=== PATIENT | female | born 1970 | race African-American/Black ===

== ENCOUNTER 2016-12-27 12:06 | Emergency (ER) | payer MEDICAID ==
[~2016-12-27] VITALS: Ht 152.4 cm; Wt 117.1 kg
[~2016-12-27 12:06] MED LIST: ALBU6.7H INH; AMLO10TA2 PO; ARIP5TAB6 PO; AZIT500T4 PO; BUPR150T73 PO; BUSP30TA PO; CEFD300C2 PO; CLON0.12 PO; DIAZ10TA PO; DULO30CA2 PO; FERR325T20 PO; FLUO40CA9 PO; LISI2.5T PO; LORA-446 PO; MOME13HF2 INH; NICO1PAT4 TD; OXCA300T3 PO; PRED-402 PO; PRED20TA PO; RISP0.2518 PO; SERT50TA; TRAZ50TA18 PO
[2016-12-27 13:50] VITALS: BP 155/70
== END 2016-12-27 14:10 | disposition home or self-care (01) ==
LOC: ED 14:05
DX: J45.31 Mild persistent asthma with (acute) exacerbation (principal); Z87.01 Personal history of pneumonia (recurrent)
CPT/HCPCS: 71020; 93005; 99284; J7512

== ENCOUNTER 2017-04-11 07:07 | Emergency (ER) | payer MEDICAID ==
[~2017-04-11] VITALS: Ht 152.4 cm; Wt 118.5 kg
[~2017-04-11 07:07] MED LIST changes: -AZIT500T4 PO; +AZIT500T77 PO; -CEFD300C2 PO; +CEFD300C37 PO
[2017-04-11 07:09] VITALS: BP 170/96
== END 2017-04-11 08:06 | disposition home or self-care (01) ==
LOC: ED 07:45
DX: K02.9 Dental caries, unspecified (principal); J45.909 Unspecified asthma, uncomplicated; I10 Essential (primary) hypertension
CPT/HCPCS: 99283

== ENCOUNTER 2017-04-28 09:56 | Emergency (ER) | payer MEDICAID ==
[~2017-04-28] VITALS: Ht 152.4 cm; Wt 118.0 kg
[2017-04-28 10:03] VITALS: BP 172/100
== END 2017-04-28 12:45 | disposition left against medical advice (07) ==
LOC: ED 12:05
DX: M54.5 Low back pain (principal); Z53.21 Procedure and treatment not carried out due to patient leaving prior to being seen by health care provider

== ENCOUNTER 2017-05-05 09:17 | Emergency (ER) | payer MEDICAID ==
[~2017-05-05] VITALS: Ht 152.4 cm; Wt 117.0 kg
[2017-05-05 09:20] VITALS: BP 191/74
[2017-05-05] MEDS ORDERED: HYDROcodone/APAP 10/325 MG TABLET PO STA (09:37)
[2017-05-05] MEDS ORDERED: DIAZEPAM 5 MG TABLET PO ONE (10:00)
[2017-05-05] MEDS ORDERED: DIAZEPAM 5 MG TABLET ONE (10:16)
[2017-05-05] MEDS ORDERED: HYDROcodone/APAP 10/325 MG TABLET ONE (10:17)
== END 2017-05-05 10:59 | disposition home or self-care (01) ==
LOC: ED 09:49
DX: S29.012A Strain of muscle and tendon of back wall of thorax, initial encounter (principal); I10 Essential (primary) hypertension; J45.909 Unspecified asthma, uncomplicated; X50.0XXA Overexertion from strenuous movement or load, initial encounter; Y93.89 Activity, other specified; Y92.89 Other specified places as the place of occurrence of the external cause; Y99.8 Other external cause status
CPT/HCPCS: 99283

== ENCOUNTER 2017-05-12 11:13 | Emergency (ER) | payer MEDICAID ==
[~2017-05-12] VITALS: Ht 152.4 cm; Wt 117.0 kg
[2017-05-12 11:14] VITALS: BP 140/78
== END 2017-05-12 12:48 | disposition home or self-care (01) ==
LOC: ED 12:36
DX: S29.012A Strain of muscle and tendon of back wall of thorax, initial encounter (principal); M51.34 Other intervertebral disc degeneration, thoracic region; I10 Essential (primary) hypertension; J45.909 Unspecified asthma, uncomplicated; F43.10 Post-traumatic stress disorder, unspecified; G43.909 Migraine, unspecified, not intractable, without status migrainosus; X58.XXXA Exposure to other specified factors, initial encounter; Y93.89 Activity, other specified; Y92.89 Other specified places as the place of occurrence of the external cause; Y99.8 Other external cause status
CPT/HCPCS: 72072; 99284

== ENCOUNTER 2017-06-13 15:16 | Emergency (ER) | payer MEDICAID ==
[~2017-06-13] VITALS: Ht 152.4 cm; Wt 116.7 kg
[~2017-06-13 15:16] MED LIST changes: +ARIP5TAB13 PO; -ARIP5TAB6 PO; +AZIT500T5 PO; -AZIT500T77 PO; +FERR325T18 PO; -FERR325T20 PO; +NICO1PAT13 TD; -NICO1PAT4 TD
[2017-06-13 15:24] VITALS: BP 168/99
[2017-06-13] MEDS ORDERED: FAMOTIDINE 20 MG/2 ML IVP ONE (16:30)
[2017-06-13] MEDS ORDERED: FAMOTIDINE 20 MG/2 ML ONE (16:30)
[2017-06-13] MEDS ORDERED: SODIUM CHLORIDE 0.9% 1,000ML IVBOLUS ONE (16:30)
[2017-06-13] MEDS ORDERED: SODIUM CHLORIDE FLUSH 10ML SYR IVF ONE (16:30)
[2017-06-13] MEDS ORDERED: ONDANSETRON 2MG/ML, 2ML IVPush ONE (16:30)
[2017-06-13] MEDS ORDERED: ONDANSETRON 2MG/ML, 2ML ONE (16:30)
[2017-06-13 16:56] LABS: ASPARTATE AMINO TRANSFERASE 28 U/L (15-37); BLOOD UREA NITROGEN 10 mg/dL (7-18)
[2017-06-13 16:57] LABS: HEMATOCRIT 38.9 % (34.6-47.8); HEMOGLOBIN 12.2 g/dL (11.7-16.4); WHITE BLOOD COUNT 7.8 x10^3/uL (3.4-10)
[2017-06-13 16:58] LABS: ANISOCYTOSIS 2+; HYPOCHROMIA 1+; MICROCYTOSIS 1+; POLYCHROMASIA 1+
[2017-06-13 16:59] LABS: SCHISTOCYTES 1+
[2017-06-13 17:00] LABS: LARGE PLATELETS 1+
== END 2017-06-13 18:46 | disposition home or self-care (01) ==
LOC: ED 15:37
DX: D25.9 Leiomyoma of uterus, unspecified (principal); F43.10 Post-traumatic stress disorder, unspecified; F32.9 Major depressive disorder, single episode, unspecified; I10 Essential (primary) hypertension; J45.909 Unspecified asthma, uncomplicated
CPT/HCPCS: 36415; 76856; 80053; 81003; 83690; 84703; 85025; 96361; 96374; 96375; 99285; J2405; J7030; S0028

== ENCOUNTER 2017-06-15 15:19 | Emergency (ER) | payer MEDICAID ==
[~2017-06-15] VITALS: Ht 152.4 cm; Wt 116.4 kg
[2017-06-15 16:00] LABS: PATH.CAST-FLAG NOT PRESENT; SPERM-FLAG NOT PRESENT; SRC-FLAG NOT PRESENT; XTAL-FLAG NOT PRESENT; YLC-FLAG NOT PRESENT
[2017-06-15] MEDS ORDERED: SODIUM CHLORIDE 0.9% 1,000 ML IV ONE (16:08)
[2017-06-15] MEDS ORDERED: SODIUM CHLORIDE FLUSH 10ML SYR IVF ONE (16:30)
[2017-06-15] MEDS ORDERED: HYDROmorphone 1 MG/ML, 1ML IVPush PRN (16:30)
[2017-06-15] MEDS ORDERED: ONDANSETRON 2MG/ML, 2ML IVPush ONE (16:30)
[2017-06-15 16:52] LABS: BLOOD UREA NITROGEN 12 mg/dL (7-18)
[2017-06-15 16:53] LABS: HEMATOCRIT 40.3 % (34.6-47.8); HEMOGLOBIN 12.5 g/dL (11.7-16.4); WHITE BLOOD COUNT 8.7 x10^3/uL (3.4-10)
[2017-06-15] MEDS ORDERED: HYDROmorphone 1 MG/ML, 1ML ONE (16:53)
[2017-06-15] MEDS ORDERED: ONDANSETRON 2MG/ML, 2ML ONE (16:53)
[2017-06-15 16:57] LABS: ASPARTATE AMINO TRANSFERASE 28 U/L (15-37)
[2017-06-15 19:27] VITALS: BP 158/91
[2017-06-15] MEDS ORDERED: OMNIPAQUE 350 MG/ML, 100ML BOTTLE ONE (20:44)
== END 2017-06-15 19:42 | disposition home or self-care (01) ==
LOC: ED 16:08
DX: M46.1 Sacroiliitis, not elsewhere classified (principal); R10.31 Right lower quadrant pain; I10 Essential (primary) hypertension; J45.909 Unspecified asthma, uncomplicated
CPT/HCPCS: 36415; 74177; 80053; 81001; 83690; 84703; 85025; 87086; 93005; 96361; 96374; 96375; 99285; J1170; J2405; J7030; Q9967

== ENCOUNTER 2017-07-10 19:42 | Inpatient (IN) | payer MEDICAID ==
[~2017-07-10] VITALS: Ht 152.4 cm; Wt 115.9 kg
[~2017-07-10 19:42] MED LIST changes: +NICO-486 TD; -NICO1PAT13 TD
[2017-07-10] MEDS ORDERED: ALBUTEROL SULFATE 2.5 MG/3 ML NPPB ONE (20:30)
[2017-07-10] MEDS ORDERED: ALBUTEROL/IPRATROPIUM 2.5MG/0.5MG, 3 ML ONE (20:33)
[2017-07-10 20:35] LABS: BLOOD UREA NITROGEN 14 mg/dL (7-18)
[2017-07-10 20:36] LABS: ASPARTATE AMINO TRANSFERASE 42 U/L (15-37)
[2017-07-10 20:55] LABS: IS PT STATUS REG ER OR PRE ER? YES
[2017-07-10 21:07] LABS: HEMATOCRIT 39.9 % (34.6-47.8); HEMOGLOBIN 12.8 g/dL (11.7-16.4); WHITE BLOOD COUNT 8.5 x10^3/uL (3.4-10)
[2017-07-10] MEDS ORDERED: BUPR150T73 PO (21:50)
[2017-07-10] MEDS ORDERED: LURA60TA PO (21:50)
[2017-07-10] MEDS ORDERED: ONDANSETRON 2MG/ML, 2ML IVPush PRN (22:00)
[2017-07-10] MEDS ORDERED: ENOXAPARIN 40 MG/0.4 ML SQ SCH (22:00)
[2017-07-10] MEDS ORDERED: hydrALAzine 20 MG/ML, 1ML IVPush PRN (22:00)
[2017-07-10] MEDS ORDERED: ALBUTEROL SULFATE INH PRN (22:00)
[2017-07-10] MEDS ORDERED: LORazepam 1MG TABLET PO PRN (22:00)
[2017-07-10] MEDS ORDERED: ACETAMINOPHEN 325 MG TABLET PO PRN (22:00)
[2017-07-10] MEDS ORDERED: HYDROmorphone 2 MG/ML, 1ML IVPush PRN (22:00)
[2017-07-10 23:24] VITALS: BP 156/72
[2017-07-10] MEDS: methylPREDNISolone SOD SUCC 125 MG/2 ML IVPush SCH (23:54)
[2017-07-11] MEDS: DOXYCYCLINE 100 MG in DEXTROSE 5% 250 ML IVPB SCH ×2 (01:18→10:22)
[2017-07-11 01:45] VITALS: BP 140/70
[2017-07-11] MEDS: methylPREDNISolone SOD SUCC 125 MG/2 ML IVPush SCH (06:15)
[2017-07-11] MEDS ORDERED: PANTOPRAZOLE 40 MG IV IVPush SCH (07:30)
[2017-07-11 08:00] VITALS: BP_SYST 123; BP_SYST 140; BP_DIAS 70; BP_DIAS 78
[2017-07-11] MEDS ORDERED: LURASIDONE 20 MG TABLET PO SCH (09:00)
[2017-07-11] MEDS ORDERED: AMLODIPINE 5 MG TABLET PO SCH (09:00)
[2017-07-11] MEDS ORDERED: SODIUM CHLORIDE FLUSH 10ML SYR IVF SCH (09:00)
[2017-07-11] MEDS ORDERED: BUPROPION SR 150 MG TABLET PO SCH (09:00)
[2017-07-11 11:48] VITALS: BP 123/78
[2017-07-11] MEDS ORDERED: FAMO-79 PO (11:50)
[2017-07-11] MEDS ORDERED: METH4TAB2 PO (11:50)
== END 2017-07-11 12:45 | disposition home health service (06) | DRG 203 ==
LOC: ED 21:10 → EDIP 21:55 → 4WST 07-11 00:28
PROVIDERS: ADMIT Internal Medicine; ATTEND Internal Medicine
DX: J45.901 Unspecified asthma with (acute) exacerbation (principal); Z99.81 Dependence on supplemental oxygen; I10 Essential (primary) hypertension; R09.02 Hypoxemia; G47.33 Obstructive sleep apnea (adult) (pediatric); F41.1 Generalized anxiety disorder; F17.200 Nicotine dependence, unspecified, uncomplicated; F43.10 Post-traumatic stress disorder, unspecified; G43.909 Migraine, unspecified, not intractable, without status migrainosus; F32.9 Major depressive disorder, single episode, unspecified; D25.9 Leiomyoma of uterus, unspecified
CPT/HCPCS: 36415; 71010; 80053; 83880; 84484; 85025; 85379; 93005; 93306; 94640; 99285; J1650; J7060; J7613; C9113; J2930; J7512

== ENCOUNTER 2017-11-19 10:08 | Emergency (ER) | payer MEDICAID ==
[~2017-11-19] VITALS: Ht 152.4 cm; Wt 116.2 kg
[~2017-11-19 10:08] MED LIST changes: +FAMO-79 PO; +LURA60TA PO; +METH4TAB2 PO
[2017-11-19 10:12] VITALS: BP 161/88
[2017-11-19 11:31] LABS: RAPID INFLUENZA A Negative (Negative); RAPID INFLUENZA B Negative (Negative)
== END 2017-11-19 11:53 | disposition home or self-care (01) ==
LOC: ED 10:40
DX: J20.9 Acute bronchitis, unspecified (principal); J45.909 Unspecified asthma, uncomplicated; G43.909 Migraine, unspecified, not intractable, without status migrainosus; I10 Essential (primary) hypertension
CPT/HCPCS: 71046; 87400; 99285

== ENCOUNTER 2017-12-05 12:23 | Emergency (ER) | payer MEDICAID ==
[~2017-12-05] VITALS: Ht 152.4 cm; Wt 113.1 kg
[2017-12-05 12:24] VITALS: BP 139/82
[2017-12-05] MEDS ORDERED: LORazepam 1MG TABLET ONE (12:46)
[2017-12-05] MEDS ORDERED: LORazepam 1MG TABLET PO ONE (13:00)
== END 2017-12-05 13:12 | disposition home or self-care (01) ==
LOC: ED 13:00
DX: F41.1 Generalized anxiety disorder (principal); G43.909 Migraine, unspecified, not intractable, without status migrainosus; I10 Essential (primary) hypertension; F43.10 Post-traumatic stress disorder, unspecified
CPT/HCPCS: 99284

== ENCOUNTER 2018-05-08 21:55 | Emergency (ER) | payer MEDICAID ==
[~2018-05-08] VITALS: Ht 167.6 cm; Wt 120.0 kg
[~2018-05-08 21:55] MED LIST changes: +TOPI25TA52 PO; +TRAZ-136 PO; -TRAZ50TA18 PO
[2018-05-08 22:02] VITALS: BP 156/82
[2018-05-08 22:46] LABS: ALANINE AMINOTRANSFERASE 37 U/L (12-78); ALBUMIN 3.4 g/dL (3.4-5.0); ANION GAP 8 mmol/L (5-15); CHLORIDE 110 mmol/L (98-107); CREATININE 1.25 mg/dL (0.55-1.02); SALICYLATE LEVEL 2.7 mg/dL (2.8-20.0)
[2018-05-08 22:47] LABS: MEAN CORPUSCULAR HEMOGLOBIN 25.3 pg (27.0-34.8); MEAN CORPUSCULAR HGB CONC 32.3 g/dL (32.4-35.8); MEAN CORPUSCULAR VOLUME 78.5 fL (80-100); MEAN PLATELET VOLUME 9.6 fL (7.4-10.4); PLATELET COUNT 253 x10^3/uL (130-400); RED BLOOD COUNT 4.46 x10^6/uL (3.82-5.3); RED CELL DISTRIBUTION WIDTH 19.7 % (9.6-15.2)
[2018-05-08 22:48] LABS: MD YES
[2018-05-08 22:50] LABS: ALKALINE PHOSPHATASE 79 U/L (45-117); BILIRUBIN,TOTAL 0.3 mg/dL (0.2-1.0); EOS#(MANUAL) 0.34 x10^3/uL (0.0-0.4); EOS% (MANUAL) 4 % (1-7); LYMPH#(MANUAL) 2.44 x10^3/uL (1-3.4); LYMPHS% (MANUAL) 29 % (22-44); MONOS#(MANUAL) 0.42 x10^3/uL (0.3-2.7); MONOS% (MANUAL) 5 % (2-9); REACTIVE LYMPHS # (MANUAL) 0.08 x10^3/uL (0-0); REACTIVE LYMPHS % (MANUAL) 1 % (0-0); SEG#(MANUAL) 5.12 x10^3/uL (1.8-6.8); SEGS% (MANUAL) 61 % (42-75); TOTAL PROTEIN 6.9 g/dL (6.4-8.2)
[2018-05-08 22:51] LABS: <PLATELET ESTIMATE> ADEQUATE; ANISOCYTOSIS 1+; POLYCHROMASIA 1+
[2018-05-08 22:52] LABS: <PLT MORPHOLOGY> NORMAL PLT MORPH
[2018-05-08 22:57] LABS: ACETAMINOPHEN < 2 mcg/mL (10-30)
== END 2018-05-09 00:15 | disposition home or self-care (01) ==
LOC: ED 05-09 00:11
DX: F41.1 Generalized anxiety disorder (principal); R45.851 Suicidal ideations; F32.9 Major depressive disorder, single episode, unspecified; F43.10 Post-traumatic stress disorder, unspecified; G43.909 Migraine, unspecified, not intractable, without status migrainosus; J45.909 Unspecified asthma, uncomplicated; Z79.899 Other long term (current) drug therapy
CPT/HCPCS: 36415; 80053; 80307; 80329; 84703; 85025; 99284; G0480

== ENCOUNTER 2018-05-31 14:33 | Emergency (ER) | payer MEDICAID ==
[~2018-05-31] VITALS: Ht 157.5 cm; Wt 100.0 kg
[2018-05-31 14:42] VITALS: BP 135/99
== END 2018-05-31 15:12 | disposition home or self-care (01) ==
LOC: ED 14:50
DX: F41.1 Generalized anxiety disorder (principal); F43.22 Adjustment disorder with anxiety; J45.909 Unspecified asthma, uncomplicated; G43.909 Migraine, unspecified, not intractable, without status migrainosus; I10 Essential (primary) hypertension; F43.10 Post-traumatic stress disorder, unspecified; R73.09 Other abnormal glucose; Z91.14 Patient's other noncompliance with medication regimen
CPT/HCPCS: 82962; 99284

== ENCOUNTER 2018-06-13 18:09 | Emergency (ER) | payer MEDICAID ==
[~2018-06-13] VITALS: Ht 152.4 cm; Wt 110.7 kg
[2018-06-13] MEDS ORDERED: BUPR-173 PO (18:37)
[2018-06-13] MEDS ORDERED: AMLO10TA2 PO (18:37)
[2018-06-13 19:36] LABS: MEAN CORPUSCULAR HEMOGLOBIN 26.8 pg (27.0-34.8); MEAN CORPUSCULAR HGB CONC 32.6 g/dL (32.4-35.8); MEAN CORPUSCULAR VOLUME 82.1 fL (80-100); MEAN PLATELET VOLUME 9.6 fL (7.4-10.4); PLATELET COUNT 284 x10^3/uL (130-400); RED BLOOD COUNT 4.74 x10^6/uL (3.82-5.3); RED CELL DISTRIBUTION WIDTH 23.8 % (9.6-15.2)
[2018-06-13 19:46] LABS: ALANINE AMINOTRANSFERASE 29 U/L (12-78); ALBUMIN 3.4 g/dL (3.4-5.0); ANION GAP 4 mmol/L (5-15); CALCIUM 8.5 mg/dL (8.5-10.1); CHLORIDE 110 mmol/L (98-107); CREATININE 1.24 mg/dL (0.55-1.02)
[2018-06-13 19:50] LABS: ALKALINE PHOSPHATASE 90 U/L (45-117); BILIRUBIN,TOTAL 0.5 mg/dL (0.2-1.0); TOTAL PROTEIN 7.1 g/dL (6.4-8.2)
[2018-06-13 20:05] LABS: MD MORPH REVIEW ONLY
[2018-06-13 20:06] LABS: ANISOCYTOSIS 1+; POLYCHROMASIA 1+
[2018-06-13 20:07] LABS: <PLATELET ESTIMATE> ADEQUATE; <PLT MORPHOLOGY> NORMAL PLT MORPH
[2018-06-13 20:08] LABS: BASOPHILS # (AUTO) 0.03 x10^3/uL (0-0.1); BASOPHILS % (AUTO) 0 % (0-1); EOSINOPHILS # (AUTO) 0.24 x10^3/uL (0-0.4); EOSINOPHILS % (AUTO) 3 % (1-7); LYMPHOCYTES # (AUTO) 1.61 x10^3/uL (1-3.4); LYMPHOCYTES % (AUTO) 17 % (22-44); MONOCYTES # (AUTO) 0.61 x10^3/uL (0.2-0.8); MONOCYTES % (AUTO) 6 % (2-9); NEUTROPHILS # (AUTO) 7.23 x10^3/uL (1.8-6.8); NEUTROPHILS % (AUTO) 74 % (42-75)
[2018-06-13 21:01] VITALS: BP 138/72
== END 2018-06-13 21:03 | disposition home or self-care (01) ==
LOC: ED 18:24
DX: G44.221 Chronic tension-type headache, intractable (principal); I10 Essential (primary) hypertension; R05 Cough; J45.909 Unspecified asthma, uncomplicated; F43.10 Post-traumatic stress disorder, unspecified
CPT/HCPCS: 36415; 70450; 71045; 80053; 83690; 85025; 93005; 99285

== ENCOUNTER 2018-06-14 23:52 | Emergency (ER) | payer MEDICAID ==
[~2018-06-14] VITALS: Ht 152.4 cm; Wt 111.2 kg
[~2018-06-14 23:52] MED LIST changes: +BUPR-173 PO
[2018-06-15] MEDS ORDERED: MAALOX/HYOSCYAMINE/LIDOCAINE 45 ML BTL ONE (00:19)
[2018-06-15] MEDS ORDERED: MAALOX/HYOSCYAMINE/LIDOCAINE 45 ML BTL PO ONE (00:30)
[2018-06-15] MEDS ORDERED: SODIUM CHLORIDE FLUSH 10ML SYR IVF ONE (01:00)
[2018-06-15] MEDS ORDERED: OMNIPAQUE 350 MG/ML, 100ML BOTTLE ONE (01:22)
[2018-06-15 01:24] VITALS: BP 146/70
[2018-06-15] MEDS ORDERED: MORPHINE SULFATE 4 MG/ML, 1ML IVPush PRN (02:00)
[2018-06-15] MEDS ORDERED: ONDANSETRON ODT 4 MG PO ONE (02:00)
[2018-06-15] MEDS ORDERED: ONDANSETRON ODT 4 MG ONE (02:07)
[2018-06-15] MEDS ORDERED: MORPHINE SULFATE 4 MG/ML, 1ML ONE (02:08)
== END 2018-06-15 02:19 | disposition home or self-care (01) ==
LOC: ED 23:59
DX: K29.00 Acute gastritis without bleeding (principal); G43.909 Migraine, unspecified, not intractable, without status migrainosus; J45.909 Unspecified asthma, uncomplicated; I10 Essential (primary) hypertension; F43.10 Post-traumatic stress disorder, unspecified
CPT/HCPCS: 74177; 93005; 96374; 99284; Q0162; Q9967

== ENCOUNTER 2018-06-18 18:47 | Emergency (ER) | payer MEDICAID ==
[~2018-06-18] VITALS: Ht 152.4 cm; Wt 112.2 kg
[~2018-06-18 18:47] MED LIST changes: -AMLO10TA2 PO; +AMLO10TA6 PO
[2018-06-18 18:51] VITALS: BP 152/87
[2018-06-18 19:22] LABS: ALANINE AMINOTRANSFERASE 56 U/L (12-78); ALBUMIN 3.7 g/dL (3.4-5.0); ANION GAP 11 mmol/L (5-15); CALCIUM 8.5 mg/dL (8.5-10.1); CHLORIDE 108 mmol/L (98-107)
[2018-06-18 19:24] LABS: ALKALINE PHOSPHATASE 88 U/L (45-117); BILIRUBIN,TOTAL 0.4 mg/dL (0.2-1.0); MEAN CORPUSCULAR HEMOGLOBIN 27.3 pg (27.0-34.8); MEAN CORPUSCULAR HGB CONC 33.1 g/dL (32.4-35.8); MEAN CORPUSCULAR VOLUME 82.3 fL (80-100); MEAN PLATELET VOLUME 9.2 fL (7.4-10.4); PLATELET COUNT 317 x10^3/uL (130-400); RED BLOOD COUNT 4.72 x10^6/uL (3.82-5.3); RED CELL DISTRIBUTION WIDTH 23.6 % (9.6-15.2); TOTAL PROTEIN 7.3 g/dL (6.4-8.2)
[2018-06-18 19:57] LABS: MD YES
[2018-06-18 20:00] LABS: EOS#(MANUAL) 0.27 x10^3/uL (0.0-0.4); EOS% (MANUAL) 3 % (1-7); LYMPH#(MANUAL) 2.18 x10^3/uL (1-3.4); LYMPHS% (MANUAL) 24 % (22-44); MONOS#(MANUAL) 0.73 x10^3/uL (0.3-2.7); MONOS% (MANUAL) 8 % (2-9); SEG#(MANUAL) 5.92 x10^3/uL (1.8-6.8); SEGS% (MANUAL) 65 % (42-75)
[2018-06-18 20:01] LABS: ANISOCYTOSIS 1+
[2018-06-18 20:02] LABS: <PLATELET ESTIMATE> ADEQUATE; LARGE PLATELETS 1+
== END 2018-06-18 19:56 | disposition left against medical advice (07) ==
LOC: ED 19:50
DX: R10.13 Epigastric pain (principal); R10.2 Pelvic and perineal pain; R30.0 Dysuria; G43.909 Migraine, unspecified, not intractable, without status migrainosus; I10 Essential (primary) hypertension
CPT/HCPCS: 36415; 80053; 83690; 85025; 99284

== ENCOUNTER → 2018-07-26 | Outpatient (CLI) | payer MEDICAID ==
[~2018-07-26] MED LIST changes: +MULT-658 PO
== END | disposition home or self-care (01) ==
LOC: STAR 08:38
PROVIDERS: ATTEND Obstetrics & Gynecology Female Pelvic Medicine and Reconstructive Surgery
DX: Z02.9 Encounter for administrative examinations, unspecified (principal)

== ENCOUNTER 2018-11-06 07:39 | Emergency (ER) | payer MEDICAID ==
[~2018-11-06] VITALS: Ht 152.4 cm; Wt 113.9 kg
[~2018-11-06 07:39] MED LIST changes: -AMLO10TA6 PO; +AMLO10TA8 PO; -TRAZ-136 PO; +TRAZ50TA66 PO
[2018-11-06 07:45] VITALS: BP 179/95
[2018-11-06] MEDS ORDERED: LORazepam 1MG TABLET ONE (08:04)
== END 2018-11-06 08:37 | disposition home or self-care (01) ==
LOC: ED 08:25
DX: F41.1 Generalized anxiety disorder (principal); I10 Essential (primary) hypertension; G43.909 Migraine, unspecified, not intractable, without status migrainosus; F32.9 Major depressive disorder, single episode, unspecified; Z72.9 Problem related to lifestyle, unspecified
CPT/HCPCS: 99284

== ENCOUNTER 2019-01-03 18:38 | Emergency (ER) | payer MEDICAID ==
[~2019-01-03] VITALS: Ht 152.4 cm; Wt 114.4 kg
[2019-01-03 18:52] VITALS: BP 154/78
[2019-01-03 19:29] LABS: ANION GAP 4 mmol/L (5-15); CALCIUM 9.2 mg/dL (8.5-10.1); CHLORIDE 109 mmol/L (98-107); CREATININE 1.08 mg/dL (0.55-1.02)
[2019-01-03 19:48] LABS: BASOPHILS # (AUTO) 0.02 x10^3/uL (0-0.1); BASOPHILS % (AUTO) 0 % (0-1); EOSINOPHILS # (AUTO) 0.21 x10^3/uL (0-0.4); EOSINOPHILS % (AUTO) 2 % (1-7); LYMPHOCYTES # (AUTO) 1.47 x10^3/uL (1-3.4); LYMPHOCYTES % (AUTO) 16 % (22-44); MD SCAN; MEAN CORPUSCULAR HEMOGLOBIN 27.2 pg (27.0-34.8); MEAN CORPUSCULAR HGB CONC 32.8 g/dL (32.4-35.8); MEAN CORPUSCULAR VOLUME 82.7 fL (80-100); MEAN PLATELET VOLUME 9.3 fL (7.4-10.4); MONOCYTES # (AUTO) 0.36 x10^3/uL (0.2-0.8); MONOCYTES % (AUTO) 4 % (2-9); NEUTROPHILS # (AUTO) 7.01 x10^3/uL (1.8-6.8); NEUTROPHILS % (AUTO) 77 % (42-75); PLATELET COUNT 321 x10^3/uL (130-400); RED BLOOD COUNT 4.68 x10^6/uL (3.82-5.3); RED CELL DISTRIBUTION WIDTH 19.5 % (9.6-15.2)
== END 2019-01-03 22:26 | disposition left against medical advice (07) ==
LOC: ED 22:23
DX: I10 Essential (primary) hypertension (principal); R42 Dizziness and giddiness
CPT/HCPCS: 36415; 80048; 82040; 85025; 93005; 99284

== ENCOUNTER 2019-02-02 15:29 | Inpatient (IN) | payer MEDICAID ==
[~2019-02-02] VITALS: Ht 152.4 cm; Wt 113.0 kg
[2019-02-02 16:48] LABS: ALANINE AMINOTRANSFERASE 41 U/L (12-78); ALBUMIN 3.2 g/dL (3.4-5.0); ANION GAP 6 mmol/L (5-15); BASOPHILS # (AUTO) 0.01 x10^3/uL (0-0.1); BASOPHILS % (AUTO) 0 % (0-1); CALCIUM 8.9 mg/dL (8.5-10.1); CHLORIDE 105 mmol/L (98-107); CREATININE 1.23 mg/dL (0.55-1.02); EOSINOPHILS # (AUTO) 0.15 x10^3/uL (0-0.4); EOSINOPHILS % (AUTO) 1 % (1-7); LYMPHOCYTES # (AUTO) 1.13 x10^3/uL (1-3.4); LYMPHOCYTES % (AUTO) 10 % (22-44); MD NO; MEAN CORPUSCULAR HEMOGLOBIN 26.8 pg (27.0-34.8); MEAN CORPUSCULAR HGB CONC 32.7 g/dL (32.4-35.8); MEAN CORPUSCULAR VOLUME 81.9 fL (80-100); MEAN PLATELET VOLUME 8.3 fL (7.4-10.4); MONOCYTES # (AUTO) 0.36 x10^3/uL (0.2-0.8); MONOCYTES % (AUTO) 3 % (2-9); NEUTROPHILS # (AUTO) 10.05 x10^3/uL (1.8-6.8); NEUTROPHILS % (AUTO) 86 % (42-75); PLATELET COUNT 461 x10^3/uL (130-400); RED BLOOD COUNT 4.16 x10^6/uL (3.82-5.3)
[2019-02-02 16:51] LABS: ALKALINE PHOSPHATASE 102 U/L (45-117); BILIRUBIN,TOTAL 0.3 mg/dL (0.2-1.0); TOTAL PROTEIN 7.4 g/dL (6.4-8.2)
--- NOTE | 2019-02-02 19:33 | NUR ---
PT TO CT
[2019-02-02] MEDS ORDERED: VENL75TA2 PO (19:42)
[2019-02-02] MEDS ORDERED: SULF1TAB23 PO (19:42)
[2019-02-02] MEDS ORDERED: AMLO-150 PO (19:42)
[2019-02-02] MEDS ORDERED: AMOX600S43 PO (19:42)
[2019-02-02] MEDS ORDERED: ONDANSETRON 2MG/ML, 2ML ONE (19:49)
[2019-02-02] MEDS ORDERED: MORPHINE SULFATE 4 MG/ML, 1ML ONE (19:49)
[2019-02-02] MEDS ORDERED: OMNIPAQUE 350 MG/ML, 100ML BOTTLE ONE (19:54)
--- NOTE | 2019-02-02 19:56 | NUR ---
IV SITE ASTARTED, PT MEDICATED PER DEC, URINE SAMPLE TAKEN TO LAB
[2019-02-02] MEDS ORDERED: ONDANSETRON 2MG/ML, 2ML IVPush ONE (20:00)
[2019-02-02] MEDS ORDERED: SODIUM CHLORIDE FLUSH 10ML SYR IVF ONE (20:00)
[2019-02-02] MEDS ORDERED: MORPHINE SULFATE 4 MG/ML, 1ML IVPush PRN (20:00)
[2019-02-02 20:49] LABS: MICROSCOPIC NOT IND
[2019-02-02 20:54] LABS: CULTURE INDICATED? NO
[2019-02-02] MEDS ORDERED: VANCOMYCIN PER PHARMACY MC ONE (21:00)
[2019-02-02] MEDS ORDERED: PIPERACILLIN/TAZO/PMX 4.5GM 100 ML IVPB ONE (21:00)
[2019-02-02] MEDS ORDERED: VANCOMYCIN 1,700 MG in SODIUM CHLORIDE 0.9% 250 ML IV ONE (21:00)
--- NOTE | 2019-02-02 21:03 | NUR ---
PT C/O CONTINUED RIGHT SIDED ABD PAIN, REFUSES NEED FOR PAIN MEDICATION. MONITORS IN PLACE, CALL LIGHT WITHIN REACH.
--- NOTE | 2019-02-02 21:04 | NUR ---
LATE ENTRY 1952, PT MEDICATED PER DEC ADMINISTERED 2 MG MORPHINE IV PER PT REQUEST, DENIES FURTHER NEEDS A TTHIS TIME
[2019-02-02] MEDS ORDERED: SODIUM CHLORIDE FLUSH 10ML SYR IVF PRN (21:30)
[2019-02-02 22:37] VITALS: BP 120/61
[2019-02-02] MEDS: OXYcodone/APAP 5/325MG TABLET PO PRN (23:16)
[2019-02-03 01:59] VITALS: BP 127/67
[2019-02-03 05:15] LABS: BASOPHILS % (AUTO) 0 % (0-1); EOSINOPHILS # (AUTO) 0.18 x10^3/uL (0-0.4); EOSINOPHILS % (AUTO) 2 % (1-7); LYMPHOCYTES % (AUTO) 13 % (22-44); MD NO; MEAN CORPUSCULAR HEMOGLOBIN 26.9 pg (27.0-34.8); MEAN CORPUSCULAR HGB CONC 32.4 g/dL (32.4-35.8); MEAN CORPUSCULAR VOLUME 83.1 fL (80-100); MEAN PLATELET VOLUME 8.3 fL (7.4-10.4); MONOCYTES # (AUTO) 0.38 x10^3/uL (0.2-0.8); MONOCYTES % (AUTO) 4 % (2-9); NEUTROPHILS # (AUTO) 6.96 x10^3/uL (1.8-6.8); NEUTROPHILS % (AUTO) 81 % (42-75); PLATELET COUNT 432 x10^3/uL (130-400); RED BLOOD COUNT 4.01 x10^6/uL (3.82-5.3)
[2019-02-03 05:18] LABS: ANION GAP 7 mmol/L (5-15); CALCIUM 8.4 mg/dL (8.5-10.1); CHLORIDE 110 mmol/L (98-107)
[2019-02-03 05:28] LABS: CREATININE 1.16 mg/dL (0.55-1.02)
[2019-02-03 07:32] VITALS: BP 128/67
[2019-02-03] MEDS: CLINDAMYCIN PMX 600MG/50ML 50 ML IV SCH ×2 (08:38→16:56)
[2019-02-03] MEDS: OXYcodone/APAP 5/325MG TABLET PO PRN ×4 (08:44→21:47)
[2019-02-03] MEDS: VENLAFAXINE 75 MG CAP ER PO SCH (11:35)
[2019-02-03] MEDS: MUPIROCIN OINT 2%, 22GM TP SCH ×2 (13:11→22:00)
[2019-02-03 14:35] VITALS: BP 122/73
[2019-02-03] MEDS ORDERED: DIPHENHYDRAMINE 25 MG CAPSULE PO PRN (20:30)
[2019-02-03 20:33] VITALS: BP 131/64
[2019-02-04] MEDS: CLINDAMYCIN PMX 600MG/50ML 50 ML IV SCH ×2 (00:25→08:16)
[2019-02-04 02:42] VITALS: BP 121/62
[2019-02-04] MEDS: OXYcodone/APAP 5/325MG TABLET PO PRN ×3 (04:11→09:46)
[2019-02-04 06:30] VITALS: BP 127/57
[2019-02-04] MEDS: VENLAFAXINE 75 MG CAP ER PO SCH (08:20)
[2019-02-04 11:02] LABS: BASOPHILS # (AUTO) 0.04 x10^3/uL (0-0.1); BASOPHILS % (AUTO) 0 % (0-1); EOSINOPHILS # (AUTO) 0.19 x10^3/uL (0-0.4); EOSINOPHILS % (AUTO) 2 % (1-7); LYMPHOCYTES # (AUTO) 1.23 x10^3/uL (1-3.4); LYMPHOCYTES % (AUTO) 12 % (22-44); MD NO; MEAN CORPUSCULAR HEMOGLOBIN 26.2 pg (27.0-34.8); MEAN CORPUSCULAR HGB CONC 31.6 g/dL (32.4-35.8); MEAN CORPUSCULAR VOLUME 82.9 fL (80-100); MONOCYTES % (AUTO) 6 % (2-9); NEUTROPHILS # (AUTO) 8.03 x10^3/uL (1.8-6.8); NEUTROPHILS % (AUTO) 80 % (42-75); PLATELET COUNT 520 x10^3/uL (130-400); RED BLOOD COUNT 4.29 x10^6/uL (3.82-5.3); RED CELL DISTRIBUTION WIDTH 17.9 % (9.6-15.2)
[2019-02-04] MEDS ORDERED: LACT1CAP4 PO (11:36)
[2019-02-04] MEDS ORDERED: CLIN300C8 PO (11:36)
[2019-02-04] MEDS ORDERED: ACET-1600 PO (11:37)
== END 2019-02-04 13:42 | disposition home or self-care (01) | DRG 603 ==
LOC: ED 21:04 → EDIP 21:06 → 4NOR 22:20 → DCLOUNGE 02-04 13:30
PROVIDERS: ADMIT Internal Medicine; ATTEND Internal Medicine
DX: L03.311 Cellulitis of abdominal wall (principal); F17.200 Nicotine dependence, unspecified, uncomplicated; F41.1 Generalized anxiety disorder; F43.10 Post-traumatic stress disorder, unspecified; I10 Essential (primary) hypertension; J45.909 Unspecified asthma, uncomplicated; I77.6 Arteritis, unspecified; Z90.710 Acquired absence of both cervix and uterus; F32.9 Major depressive disorder, single episode, unspecified
CPT/HCPCS: 36415; 74177; 80048; 80053; 81003; 83605; 83690; 84145; 85025; 86140; 87040; 87070; 87077; 87186; 87205; 96374; 96375; 99285; G0378; J2405; J2543; J3370; Q9967; J7050; Q0163

== ENCOUNTER 2019-02-06 19:39 | Emergency (ER) | payer MEDICAID ==
[~2019-02-06] VITALS: Ht 152.4 cm; Wt 111.0 kg
[~2019-02-06 19:39] MED LIST changes: +ACET-1600 PO; +AMLO-150 PO; +AMOX600S43 PO; +CLIN300C8 PO; +LACT1CAP4 PO; +SULF1TAB23 PO; +VENL75TA2 PO
[2019-02-06 19:56] VITALS: BP 134/87
--- NOTE | 2019-02-06 20:21 | NUR ---
PT AMBULATED TO BR WITHOUT DIFFICULTY. INSTRUCTED ON CLEAN CATCH URINE SAMPLE.
[2019-02-06] MEDS ORDERED: ONDANSETRON 2MG/ML, 2ML IVPush ONE (20:30)
[2019-02-06] MEDS ORDERED: MORPHINE SULFATE 4 MG/ML, 1ML IVPush PRN (20:30)
[2019-02-06 20:33] LABS: MICROSCOPIC NOT IND
[2019-02-06 20:39] LABS: CULTURE INDICATED? NO
[2019-02-06 21:00] LABS: MEAN CORPUSCULAR HEMOGLOBIN 26.1 pg (27.0-34.8); MEAN CORPUSCULAR HGB CONC 31.6 g/dL (32.4-35.8); MEAN CORPUSCULAR VOLUME 82.7 fL (80-100); MEAN PLATELET VOLUME 8.2 fL (7.4-10.4); PLATELET COUNT 543 x10^3/uL (130-400); RED BLOOD COUNT 4.34 x10^6/uL (3.82-5.3); RED CELL DISTRIBUTION WIDTH 17.8 % (9.6-15.2)
[2019-02-06] MEDS ORDERED: KETOROLAC 30 MG/1 ML IVPush ONE (21:00)
[2019-02-06 21:09] LABS: ALANINE AMINOTRANSFERASE 39 U/L (12-78); ALBUMIN 3.3 g/dL (3.4-5.0); ANION GAP 8 mmol/L (5-15); CALCIUM 9.2 mg/dL (8.5-10.1); CHLORIDE 101 mmol/L (98-107); CREATININE 0.93 mg/dL (0.55-1.02)
[2019-02-06] MEDS ORDERED: KETOROLAC 30 MG/1 ML ONE (21:09)
[2019-02-06] MEDS ORDERED: ONDANSETRON 2MG/ML, 2ML ONE (21:09)
[2019-02-06] MEDS ORDERED: MORPHINE SULFATE 4 MG/ML, 1ML ONE (21:10)
[2019-02-06 21:11] LABS: ALKALINE PHOSPHATASE 95 U/L (45-117); BILIRUBIN,TOTAL 0.4 mg/dL (0.2-1.0); TOTAL PROTEIN 7.6 g/dL (6.4-8.2)
[2019-02-06 21:17] LABS: BASOPHILS # (AUTO) 0.06 x10^3/uL (0-0.1); BASOPHILS % (AUTO) 1 % (0-1); EOSINOPHILS # (AUTO) 0.24 x10^3/uL (0-0.4); EOSINOPHILS % (AUTO) 3 % (1-7); LYMPHOCYTES # (AUTO) 1.63 x10^3/uL (1-3.4); LYMPHOCYTES % (AUTO) 18 % (22-44); MD SCAN; MONOCYTES # (AUTO) 0.37 x10^3/uL (0.2-0.8); MONOCYTES % (AUTO) 4 % (2-9); NEUTROPHILS # (AUTO) 6.56 x10^3/uL (1.8-6.8); NEUTROPHILS % (AUTO) 74 % (42-75)
[2019-02-06] MEDS ORDERED: KETOROLAC 60 MG/2 ML IVPush ONE (22:00)
--- NOTE | 2019-02-06 22:33 | NUR ---
PT VERBALIZED RELIEF AFTER PAIN MEDS. NEW DRESSING APPLIED TO ABD WOUND WITH ADAPTIC, STERILE GAUZE, SILK TAPE. SUPPLIES & WOUND CARE INSTRUCTIONS PROVIDED TO PT. D/C INSTRUCTIONS, MEDS & F/U APPT RV'WD WITH PT, SHE VERBALIZES UNDERSTANDING. RX GIVEN X2. AMBULATED OUT OF ED WITH FRIEND WITHOUT DIFFICULTY.
== END 2019-02-06 22:41 | disposition home or self-care (01) ==
LOC: ED 20:31
DX: L03.311 Cellulitis of abdominal wall (principal); B95.61 Methicillin susceptible Staphylococcus aureus infection as the cause of diseases classified elsewhere; I10 Essential (primary) hypertension; J45.909 Unspecified asthma, uncomplicated; Z87.891 Personal history of nicotine dependence
CPT/HCPCS: 36415; 80053; 81003; 85025; 96374; 96375; 99283; J1885; J2405

== ENCOUNTER 2019-02-18 07:13 | Emergency (ER) | payer MEDICAID ==
[~2019-02-18] VITALS: Ht 152.4 cm; Wt 110.0 kg
--- NOTE | 2019-02-18 07:26 | NUR ---
BREAK RN FOR PRIMARY RN BRYN. 48 Y/O F PRESENTS STATING "I WAS AT [facility] FOR A FEW WEEKS AGO FOR HYSTERECTOMY SURGERY, I NOTICED DEVELOPING BLISTERS ON MY STOMACH, THOUGHT IT WAS PART OF SURGERY, GOT HOME, STARTED TO SPREAD, UNTIL IT TURNED INTO IN HOLE, SO I CAME TO [facility] A FEW WEEKS AGO, ADMITTED ME FOR STAPH INFECTION, TOOK CLINDAMYCIN, SAW MY DOCTOR AT [facility], THEY GAVE ME ANOTHER ANTIBIOTIC, IT'S STILL PAINFUL AND IT'S DRAINING BROWN, THE [facility] SAID MY DOCTOR WASN'T IN TODAY AND TO COME TO ER." RATES PAIN 05/21. CONT PULSE OX, BP MONITORS APPLIED. VSS. CALL LIGHT IN REACH. FALL PRECAUTIONS IN PLACE. A&OX4. WOUND WITH DRAINAGE NOTED TO RLQ. ABD SOFT. BOWEL SOUNDS ACTIVE. AWAITING EVAL BY ERP
--- NOTE | 2019-02-18 07:38 | NUR ---
BEDSIDE REPORT AND CARE TO BRYN MEIER AT BEDSIDE FOR EVALUATION
--- NOTE | 2019-02-18 08:22 | NUR ---
Bedside report from Juvenal DUFFY labs obtained by sports writer and sent for sample wound assessed-to dress with wtd dressing shortly Updated on poc
[2019-02-18 08:23] LABS: BASOPHILS % (AUTO) 0 % (0-1); EOSINOPHILS # (AUTO) 0.17 x10^3/uL (0-0.4); EOSINOPHILS % (AUTO) 3 % (1-7); LYMPHOCYTES # (AUTO) 0.92 x10^3/uL (1-3.4); LYMPHOCYTES % (AUTO) 17 % (22-44); MD NO; MEAN CORPUSCULAR HGB CONC 32.5 g/dL (32.4-35.8); MEAN PLATELET VOLUME 8.5 fL (7.4-10.4); MONOCYTES # (AUTO) 0.36 x10^3/uL (0.2-0.8); MONOCYTES % (AUTO) 6 % (2-9); NEUTROPHILS # (AUTO) 4.15 x10^3/uL (1.8-6.8); NEUTROPHILS % (AUTO) 74 % (42-75); PLATELET COUNT 315 x10^3/uL (130-400); RED BLOOD COUNT 4.73 x10^6/uL (3.82-5.3); RED CELL DISTRIBUTION WIDTH 18.1 % (9.6-15.2)
[2019-02-18 08:34] LABS: ALBUMIN 3.8 g/dL (3.4-5.0); ANION GAP 8 mmol/L (5-15); CALCIUM 9.7 mg/dL (8.5-10.1); CHLORIDE 107 mmol/L (98-107); CREATININE 1.27 mg/dL (0.55-1.02)
--- NOTE | 2019-02-18 09:30 | NUR ---
Wound cleansed and dressed w/out difficulty. Re-educated on care of Updated on poc- to watch wound/continue taking abx
[2019-02-18 09:53] VITALS: BP 138/72
== END 2019-02-18 09:55 | disposition home or self-care (01) ==
LOC: ED 08:42
DX: Z48.01 Encounter for change or removal of surgical wound dressing (principal); G43.909 Migraine, unspecified, not intractable, without status migrainosus; I10 Essential (primary) hypertension
CPT/HCPCS: 36415; 80048; 82040; 85025; 99283

== ENCOUNTER 2019-02-19 17:43 | Emergency (ER) | payer MEDICAID ==
[~2019-02-19] VITALS: Ht 152.4 cm; Wt 65.0 kg
[2019-02-19 17:44] VITALS: BP 130/60
[2019-02-19] MEDS ORDERED: DIPHENHYDRAMINE 50 MG/ML, 1ML ONE (17:54)
--- NOTE | 2019-02-19 17:54 | NUR ---
PT BIB [facility] FOR ALLERGIC REACTION, PATIENT REPORTS TAKING LATUDA THIS AM AT 1100 FOR THE FIRST TIME, NEWLY PRESCRIBED. PATIENT ADMINISTERED TOPICAL BENADRYL, NO DIFFICULTY BREATHING, A+OX4, HIVES NOTED GENERALIZED BODY. PATIENT ALSO HAS STAPH INFECTION TO RLQ. HX MRSA. NAD NOTED. AWAITING MD ORDERS, CALL LIGHT WITHIN REACH.
[2019-02-19] MEDS ORDERED: methylPREDNISolone SOD SUCC 125 MG/2 ML IVPush STA (18:23)
[2019-02-19] MEDS ORDERED: methylPREDNISolone SOD SUCC 125 MG/2 ML ONE (18:50)
--- NOTE | 2019-02-19 19:15 | NUR ---
PATIENT REPORTS FEELING BETTER, REQUESTING TO HAVE IV OUT AND LEAVE.
--- NOTE | 2019-02-19 19:30 | NUR ---
PATIENT LEFT PRIOR TO RECEIVING DC PAPERWORK. PATIENT AMBULATED WITH STEADY GAIT TO DC DESK.
== END 2019-02-19 19:32 | disposition home or self-care (01) ==
LOC: ED 17:55
DX: L50.0 Allergic urticaria (principal); J45.909 Unspecified asthma, uncomplicated; I10 Essential (primary) hypertension; Z87.891 Personal history of nicotine dependence
CPT/HCPCS: 96374; 99283; J2930

== ENCOUNTER 2019-02-21 16:27 | Emergency (ER) | payer MEDICAID ==
[~2019-02-21] VITALS: Ht 152.4 cm; Wt 112.4 kg
[2019-02-21 16:29] VITALS: BP 139/57
[2019-02-21] MEDS ORDERED: DIAZ5TAB PO (16:47)
== END 2019-02-21 17:25 | disposition home or self-care (01) ==
LOC: ED 16:50
DX: L50.9 Urticaria, unspecified (principal); F43.10 Post-traumatic stress disorder, unspecified; Z72.9 Problem related to lifestyle, unspecified; Z90.710 Acquired absence of both cervix and uterus; Z88.8 Allergy status to other drugs, medicaments and biological substances
CPT/HCPCS: 99283; J7512

== ENCOUNTER 2019-03-06 15:09 | Inpatient (IN) | payer MEDICAID ==
[~2019-03-06] VITALS: Ht 152.4 cm; Wt 118.4 kg
[~2019-03-06 15:09] MED LIST changes: +DIAZ5TAB PO
--- NOTE | 2019-03-06 16:04 | NUR ---
Pt to T-1 from [facility]
--- NOTE | 2019-03-06 16:15 | NUR ---
pt presents with c/o surgical wound complications following a laproscopic hysterectomy performed on 01/19/19. wound is on lower abd with pus and scant yellow/green drainage.
[2019-03-06] MEDS ORDERED: HYDROcodone/APAP 5/325 TABLET PO ONE (16:30)
[2019-03-06] MEDS ORDERED: HYDROcodone/APAP 5/325 TABLET ONE (16:36)
[2019-03-06] MEDS ORDERED: FLUO40CA9 PO (16:40)
--- NOTE | 2019-03-06 16:44 | NUR ---
Pt medicated for pain per MAR, denies other needs.
[2019-03-06 16:49] LABS: BASOPHILS % (AUTO) 0 % (0-1); EOSINOPHILS # (AUTO) 0.24 x10^3/uL (0-0.4); EOSINOPHILS % (AUTO) 2 % (1-7); LYMPHOCYTES # (AUTO) 1.45 x10^3/uL (1-3.4); LYMPHOCYTES % (AUTO) 14 % (22-44); MD NO; MEAN CORPUSCULAR HEMOGLOBIN 27.8 pg (27.0-34.8); MEAN CORPUSCULAR HGB CONC 32.2 g/dL (32.4-35.8); MEAN CORPUSCULAR VOLUME 86.4 fL (80-100); MEAN PLATELET VOLUME 9.1 fL (7.4-10.4); MONOCYTES # (AUTO) 0.37 x10^3/uL (0.2-0.8); MONOCYTES % (AUTO) 4 % (2-9); NEUTROPHILS # (AUTO) 8.04 x10^3/uL (1.8-6.8); NEUTROPHILS % (AUTO) 80 % (42-75); PLATELET COUNT 340 x10^3/uL (130-400); RED BLOOD COUNT 4.74 x10^6/uL (3.82-5.3); RED CELL DISTRIBUTION WIDTH 19.7 % (9.6-15.2)
[2019-03-06 16:52] LABS: ALANINE AMINOTRANSFERASE 53 U/L (12-78); ALBUMIN 3.5 g/dL (3.4-5.0); ANION GAP 6 mmol/L (5-15); CALCIUM 9.1 mg/dL (8.5-10.1); CHLORIDE 109 mmol/L (98-107); CREATININE 1.02 mg/dL (0.55-1.02)
[2019-03-06 16:54] LABS: ALKALINE PHOSPHATASE 86 U/L (45-117); BILIRUBIN,TOTAL 0.4 mg/dL (0.2-1.0); TOTAL PROTEIN 7.2 g/dL (6.4-8.2)
--- NOTE | 2019-03-06 17:50 | NUR ---
PT BACK FROM CT. PT REPORTS PAIN IS MUCH BETTER, 0/10. PT RESTING ON GURNEY. NO REQUESTS AT THIS TIME.
[2019-03-06] MEDS ORDERED: OMNIPAQUE 350 MG/ML, 100ML BOTTLE ONE (17:54)
[2019-03-06] MEDS ORDERED: PIPERACILLIN/TAZO/PMX 3.375GM 50 ML IV ONE (18:30)
--- NOTE | 2019-03-06 18:58 | NUR ---
Report from Niya Roberson rn. This rn to assume care of pt. Iv abx infusing appropriately. No immediate needs from pt or family. Awaiting adm bed.
[2019-03-06] MEDS ORDERED: SODIUM CHLORIDE FLUSH 10ML SYR IVF PRN (19:30)
[2019-03-06] MEDS ORDERED: ONDANSETRON 2MG/ML, 2ML IVPush PRN (19:30)
[2019-03-06] MEDS ORDERED: LABETALOL 5MG/ML, 20ML IVPush PRN (19:30)
[2019-03-06] MEDS ORDERED: ZOSYN PER PHARMACY MC PRN (19:30)
[2019-03-06] MEDS ORDERED: ACETAMINOPHEN 325 MG TABLET PO PRN (19:30)
[2019-03-06] MEDS ORDERED: DIAZEPAM 10 MG TABLET HOMEMEDPO PRN (19:30)
[2019-03-06] MEDS: FLUOXETINE MC SCH (20:30)
[2019-03-06 20:37] VITALS: BP 120/68
[2019-03-06] MEDS ORDERED: DIAZEPAM 5 MG TABLET ONE (21:15)
[2019-03-06 21:16] LABS: MICROSCOPIC NOT IND
[2019-03-06] MEDS: KETOROLAC 30 MG/1 ML IV PRN (21:19)
[2019-03-06] MEDS: OXYcodone/APAP 5/325MG TABLET PO PRN (21:19)
[2019-03-06 21:24] LABS: CULTURE INDICATED? NO
[2019-03-07] MEDS: PIPERACILLIN/TAZO/PMX 3.375GM 50 ML IV SCH ×4 (00:51→20:26)
[2019-03-07] MEDS: OXYcodone/APAP 5/325MG TABLET PO PRN ×3 (01:36→20:46)
[2019-03-07 02:09] VITALS: BP 126/66
[2019-03-07] MEDS ORDERED: VENL75TA PO (03:33)
[2019-03-07] MEDS: FLUOXETINE MC SCH ×2 (03:34→12:30)
[2019-03-07 06:31] LABS: BASOPHILS # (AUTO) 0.07 x10^3/uL (0-0.1); BASOPHILS % (AUTO) 1 % (0-1); EOSINOPHILS # (AUTO) 0.24 x10^3/uL (0-0.4); EOSINOPHILS % (AUTO) 3 % (1-7); LYMPHOCYTES # (AUTO) 1.18 x10^3/uL (1-3.4); LYMPHOCYTES % (AUTO) 16 % (22-44); MD NO; MEAN CORPUSCULAR HEMOGLOBIN 27.9 pg (27.0-34.8); MEAN CORPUSCULAR HGB CONC 31.9 g/dL (32.4-35.8); MEAN CORPUSCULAR VOLUME 87.5 fL (80-100); MEAN PLATELET VOLUME 8.8 fL (7.4-10.4); MONOCYTES # (AUTO) 0.24 x10^3/uL (0.2-0.8); MONOCYTES % (AUTO) 3 % (2-9); NEUTROPHILS # (AUTO) 5.47 x10^3/uL (1.8-6.8); NEUTROPHILS % (AUTO) 76 % (42-75); PLATELET COUNT 319 x10^3/uL (130-400); RED BLOOD COUNT 4.83 x10^6/uL (3.82-5.3); RED CELL DISTRIBUTION WIDTH 19.9 % (9.6-15.2)
[2019-03-07 06:35] LABS: ANION GAP 7 mmol/L (5-15); CHLORIDE 109 mmol/L (98-107)
[2019-03-07] MEDS: KETOROLAC 30 MG/1 ML IV PRN ×2 (06:38→20:46)
[2019-03-07 06:42] LABS: CREATININE 1.16 mg/dL (0.55-1.02)
[2019-03-07 08:48] VITALS: BP 135/72
[2019-03-07] MEDS ORDERED: FLUOXETINE PO SCH (09:00)
[2019-03-07] MEDS ORDERED: AMLODIPINE 5 MG TABLET PO SCH (09:00)
[2019-03-07 14:24] VITALS: BP 133/78
[2019-03-07] MEDS ORDERED: SODIUM CHLORIDE 0.9% 1,000 ML IV SCH (14:30)
[2019-03-07 19:52] VITALS: BP 125/76
[2019-03-08] MEDS ORDERED: VENLAFAXINE ER 75 MG CAP HOMEMEDPO SCH (09:00)
[2019-03-08] MEDS ORDERED: VENLAFAXINE XR 37.5MG CAP.ER.24H PO SCH (09:00)
== END 2019-03-07 22:30 | disposition left against medical advice (07) | DRG 948 ==
LOC: ED 17:19 → EDIP 19:02 → 4NOR 20:07
PROVIDERS: ADMIT Family Medicine; ATTEND Family Medicine
DX: R18.8 Other ascites (principal); Z68.43 Body mass index [BMI] 50.0-59.9, adult; B95.8 Unspecified staphylococcus as the cause of diseases classified elsewhere; E66.01 Morbid (severe) obesity due to excess calories; F17.210 Nicotine dependence, cigarettes, uncomplicated; F32.9 Major depressive disorder, single episode, unspecified; F41.1 Generalized anxiety disorder; F43.10 Post-traumatic stress disorder, unspecified; I10 Essential (primary) hypertension; J45.20 Mild intermittent asthma, uncomplicated; M46.1 Sacroiliitis, not elsewhere classified; Z53.9 Procedure and treatment not carried out, unspecified reason; Z79.899 Other long term (current) drug therapy; Z80.6 Family history of leukemia; Z90.710 Acquired absence of both cervix and uterus; Z88.8 Allergy status to other drugs, medicaments and biological substances
CPT/HCPCS: 36415; 74177; 76830; 80048; 80053; 81003; 83605; 83690; 84145; 85025; 85651; 86140; 87040; 96374; G0378; J1885; J2543; Q9967; J7030

== ENCOUNTER 2019-04-18 19:00 | Emergency (ER) | payer MEDICAID ==
[~2019-04-18] VITALS: Ht 152.4 cm; Wt 112.2 kg
[~2019-04-18 19:00] MED LIST changes: +VENL75TA PO
[2019-04-18 19:09] VITALS: BP 147/86
[2019-04-18] MEDS ORDERED: ONDANSETRON ODT 4 MG PO ONE (19:30)
[2019-04-18 19:36] LABS: BASOPHILS # (AUTO) 0.01 x10^3/uL (0-0.1); BASOPHILS % (AUTO) 0 % (0-1); EOSINOPHILS # (AUTO) 0.17 x10^3/uL (0-0.4); EOSINOPHILS % (AUTO) 2 % (1-7); LYMPHOCYTES # (AUTO) 1.24 x10^3/uL (1-3.4); LYMPHOCYTES % (AUTO) 14 % (22-44); MD NO; MEAN CORPUSCULAR HEMOGLOBIN 27.8 pg (27.0-34.8); MEAN CORPUSCULAR HGB CONC 32.1 g/dL (32.4-35.8); MEAN CORPUSCULAR VOLUME 86.7 fL (80-100); MEAN PLATELET VOLUME 9.4 fL (7.4-10.4); MONOCYTES # (AUTO) 0.35 x10^3/uL (0.2-0.8); MONOCYTES % (AUTO) 4 % (2-9); NEUTROPHILS # (AUTO) 6.91 x10^3/uL (1.8-6.8); NEUTROPHILS % (AUTO) 80 % (42-75); PLATELET COUNT 273 x10^3/uL (130-400); RED BLOOD COUNT 5.42 x10^6/uL (3.82-5.3)
[2019-04-18 19:47] LABS: ALANINE AMINOTRANSFERASE 32 U/L (12-78); ALBUMIN 4.1 g/dL (3.4-5.0); ANION GAP 9 mmol/L (5-15); CALCIUM 9.5 mg/dL (8.5-10.1); CHLORIDE 105 mmol/L (98-107); CREATININE 0.99 mg/dL (0.55-1.02)
[2019-04-18 19:50] LABS: ALKALINE PHOSPHATASE 86 U/L (45-117); BILIRUBIN,TOTAL 0.6 mg/dL (0.2-1.0); TOTAL PROTEIN 8.4 g/dL (6.4-8.2)
--- NOTE | 2019-04-18 20:18 | NUR ---
assessment made. chart up for MD to see. c/o LLQ pain since noon. constant as described. 05/21 pain. regular bowel movement.
[2019-04-18] MEDS ORDERED: ONDANSETRON ODT 4 MG ONE (20:23)
--- NOTE | 2019-04-18 20:24 | NUR ---
patient medicated for nausea / vomiting.
[2019-04-18 20:43] LABS: MICROSCOPIC NOT IND
[2019-04-18 20:47] LABS: CULTURE INDICATED? NO
--- NOTE | 2019-04-18 21:12 | NUR ---
ERP at bedside.
[2019-04-18] MEDS ORDERED: ACETAMINOPHEN 500 MG TABLET PO ONE (21:30)
[2019-04-18] MEDS ORDERED: KETOROLAC 30 MG/1 ML IM ONE (21:30)
== END 2019-04-18 21:32 | disposition home or self-care (01) ==
LOC: ED 21:31
DX: R10.12 Left upper quadrant pain (principal); J45.909 Unspecified asthma, uncomplicated; I10 Essential (primary) hypertension; Z90.710 Acquired absence of both cervix and uterus
CPT/HCPCS: 36415; 80053; 81003; 83690; 85025; 99283; Q0162

== ENCOUNTER 2019-05-26 10:04 | Emergency (ER) | payer MEDICAID ==
[~2019-05-26] VITALS: Ht 152.4 cm; Wt 112.9 kg
[2019-05-26 12:08] VITALS: BP 157/87
== END 2019-05-26 12:56 | disposition home or self-care (01) ==
LOC: ED 11:44
DX: K29.00 Acute gastritis without bleeding (principal); F41.1 Generalized anxiety disorder; I10 Essential (primary) hypertension; G43.909 Migraine, unspecified, not intractable, without status migrainosus; F32.9 Major depressive disorder, single episode, unspecified; F43.10 Post-traumatic stress disorder, unspecified; F17.200 Nicotine dependence, unspecified, uncomplicated; Z72.9 Problem related to lifestyle, unspecified; Z90.710 Acquired absence of both cervix and uterus; Z87.01 Personal history of pneumonia (recurrent)
CPT/HCPCS: 36415; 74021; 80053; 81003; 83605; 83690; 85025; 93005; 96374; 99284; J2405; J7030

== ENCOUNTER 2019-08-06 20:14 | Emergency (ER) | payer MEDICAID ==
[~2019-08-06] VITALS: Ht 152.4 cm; Wt 109.0 kg
[~2019-08-06 20:14] MED LIST changes: -ALBU6.7H INH; +ALBU6.7H8 INH
[2019-08-06 20:17] VITALS: BP 166/87
--- NOTE | 2019-08-06 20:26 | NUR ---
BIB [facility], ARGUING WITH EX . TOOK 2 VALUMA TO CALM DOWN AFTER ARGUMENT. SON FOUND PT MINIMALLY RESPONSIVE. DENIES SI/HI CURRENTLY. PT STATES LAST TIME SHE WANTED TO HURT HERSELF WAS A COUPLE MONTHS AGO AND SHE CALLED HER THERAPIST THEN BECAUSE SHE HAS THERAPIST CELL NUMBER. C/O HEADACHE 07/21. PT ATTACHED TO O2 MONITORS. DEPRESSED AFFECT. STATES SHE FEELS ANGRY AT HER EX AND HER CURRENT LIVING SITUATION.
[2019-08-06] MEDS ORDERED: ACETAMINOPHEN 500 MG TABLET ONE (20:43)
[2019-08-06] MEDS ORDERED: DIPH,PERTUSS(ACELL),TET VAC/PF 0.5 ML IM-VACC ONE (21:00)
[2019-08-06] MEDS ORDERED: ACETAMINOPHEN 500 MG TABLET PO ONE (21:00)
--- NOTE | 2019-08-06 21:07 | NUR ---
PER PT SHE HAS A CLOSE RELATIONSHIP WITH HER THERAPIST AND SHE WOULD PREFER TO CALL HER THERAPIST ON THEIR PERSONAL CELL PHONE AND TALK ABOUT WHAT HAPPENED RATHER THEN UTILIZE TELEPSYCH. PT AND I AGREED TO HAVE LAB WORK DONE THEN DISCHARGE WITH PLAN TO CALL THERAPIST KISHA.
--- NOTE | 2019-08-06 21:09 | NUR ---
PT STATES SHE IS FEELING MUCH BETTER AND LESS ANXIOUS AT THIS TIME. MEDICATED FOR HEADACHE PER EMAR.
[2019-08-06 21:25] LABS: ALBUMIN 3.4 g/dL (3.4-5.0); ANION GAP 3 mmol/L (5-15); CALCIUM 8.9 mg/dL (8.5-10.1); CHLORIDE 109 mmol/L (98-107)
[2019-08-06 21:31] LABS: ALANINE AMINOTRANSFERASE 31 U/L (12-78); ALKALINE PHOSPHATASE 80 U/L (45-117); BILIRUBIN,TOTAL 0.5 mg/dL (0.2-1.0); CREATININE 1.07 mg/dL (0.55-1.02); SALICYLATE LEVEL 3.4 mg/dL (2.8-20.0); TOTAL PROTEIN 7.2 g/dL (6.4-8.2)
[2019-08-06 21:55] LABS: MD YES; MEAN CORPUSCULAR HGB CONC 33.1 g/dL (32.4-35.8); MEAN CORPUSCULAR VOLUME 93.7 fL (80-100); MEAN PLATELET VOLUME 9.4 fL (7.4-10.4); PLATELET COUNT 207 x10^3/uL (130-400); RED BLOOD COUNT 5.11 x10^6/uL (3.82-5.3); RED CELL DISTRIBUTION WIDTH 16.9 % (9.6-15.2)
[2019-08-06 22:04] LABS: <PLATELET ESTIMATE> ADEQUATE; ANISOCYTOSIS 1+; BANDS%(MANUAL) 1 % (0-7); BASOS% (MANUAL) 1 % (0-1); EOS#(MANUAL) 0.29 x10^3/uL (0.0-0.4); EOS% (MANUAL) 3 % (1-7); LARGE PLATELETS 1+; LYMPH#(MANUAL) 1.63 x10^3/uL (1-3.4); LYMPHS% (MANUAL) 17 % (22-44); MONOS#(MANUAL) 0.77 x10^3/uL (0.3-2.7); MONOS% (MANUAL) 8 % (2-9); POLYCHROMASIA 1+; SEG#(MANUAL) 6.72 x10^3/uL (1.8-6.8); SEGS% (MANUAL) 70 % (42-75)
== END 2019-08-06 22:03 | disposition home or self-care (01) ==
LOC: ED 21:54
DX: F32.9 Major depressive disorder, single episode, unspecified (principal); F41.1 Generalized anxiety disorder; G44.209 Tension-type headache, unspecified, not intractable; F17.210 Nicotine dependence, cigarettes, uncomplicated; I10 Essential (primary) hypertension; J45.909 Unspecified asthma, uncomplicated; Z90.710 Acquired absence of both cervix and uterus
CPT/HCPCS: 36415; 80053; 80307; 85025; 99284

== ENCOUNTER 2019-09-01 08:45 | Emergency (ER) | payer MEDICAID, MEDICARE ==
[~2019-09-01] VITALS: Ht 152.4 cm; Wt 114.4 kg
[~2019-09-01 08:45] MED LIST changes: +AMOX600S4 PO; -AMOX600S43 PO; +AZIT500T10 PO; -AZIT500T5 PO
[2019-09-01 09:03] VITALS: BP 137/76
[2019-09-01] MEDS ORDERED: KETOROLAC 60 MG/2 ML ONE (09:19)
[2019-09-01] MEDS ORDERED: KETOROLAC 30 MG/1 ML IM ONE (09:30)
--- NOTE | 2019-09-01 09:31 | NUR ---
Patient/Caregiver given discharge instructions and they have confirmed that they understand the instructions. Patient ambulatory with steady gait.
== END 2019-09-01 09:33 | disposition home or self-care (01) ==
LOC: ED 09:10
DX: G44.211 Episodic tension-type headache, intractable (principal); J45.909 Unspecified asthma, uncomplicated; I10 Essential (primary) hypertension
CPT/HCPCS: 96372; 99283; J1885

== ENCOUNTER 2019-10-06 05:25 | Emergency (ER) | payer MEDICARE, MEDICAID ==
[~2019-10-06] VITALS: Ht 152.4 cm; Wt 116.0 kg
--- NOTE | 2019-10-06 05:35 | NUR ---
assessment made. chart up for MD to see. RT at bedside giving breathing treatment.
--- NOTE | 2019-10-06 06:02 | NUR ---
patient medicated. awaiting X ray.
--- NOTE | 2019-10-06 06:11 | NUR ---
patient to X ray.
[2019-10-06 06:17] LABS: RAPID INFLUENZA A Negative (Negative); RAPID INFLUENZA B Negative (Negative)
--- NOTE | 2019-10-06 06:49 | NUR ---
report to CLIVE Green.
--- NOTE | 2019-10-06 06:50 | NUR ---
REPORT RECEIVED FROM CAMILA DUFFY.
[2019-10-06 06:56] VITALS: BP 151/108
--- NOTE | 2019-10-06 06:57 | NUR ---
PATIENT RESTING ON GURNEY CONVERSING WITH STAFF AWAITING CXR RESULTS. RESPIRATIONS EVEN AND UNLABORED. CALL LIGHT IN REACH. DENIES FURTHER NEEDS AT THIS TIME.
--- NOTE | 2019-10-06 07:36 | NUR ---
Patient given discharge instructions and they have confirmed that they understand the instructions. Patient ambulatory with steady gait.
== END 2019-10-06 07:38 | disposition home or self-care (01) ==
LOC: ED 06:07
DX: J45.31 Mild persistent asthma with (acute) exacerbation (principal); J15.9 Unspecified bacterial pneumonia; F17.210 Nicotine dependence, cigarettes, uncomplicated; G43.909 Migraine, unspecified, not intractable, without status migrainosus
CPT/HCPCS: 71046; 87400; 94640; 99284; J7512

== ENCOUNTER 2019-11-07 16:04 | Emergency (ER) | payer MEDICARE, MEDICAID ==
[~2019-11-07] VITALS: Ht 152.4 cm; Wt 114.0 kg
[2019-11-07 17:49] LABS: ALANINE AMINOTRANSFERASE 33 U/L (12-78); ANION GAP 5 mmol/L (5-15); CALCIUM 9.4 mg/dL (8.5-10.1); CHLORIDE 109 mmol/L (98-107); CREATININE 1.09 mg/dL (0.55-1.02)
[2019-11-07 17:51] LABS: ALKALINE PHOSPHATASE 84 U/L (45-117); BILIRUBIN,TOTAL 0.4 mg/dL (0.2-1.0); TOTAL PROTEIN 7.9 g/dL (6.4-8.2)
[2019-11-07 18:02] LABS: BASOPHILS # (AUTO) 0.05 x10^3/uL (0-0.1); BASOPHILS % (AUTO) 1 % (0-1); EOSINOPHILS # (AUTO) 0.29 x10^3/uL (0-0.4); EOSINOPHILS % (AUTO) 3 % (1-7); LYMPHOCYTES % (AUTO) 17 % (22-44); MD NO; MEAN CORPUSCULAR HEMOGLOBIN 31.8 pg (27.0-34.8); MEAN CORPUSCULAR HGB CONC 33.4 g/dL (32.4-35.8); MEAN CORPUSCULAR VOLUME 95.2 fL (80-100); MEAN PLATELET VOLUME 9.5 fL (7.4-10.4); MONOCYTES # (AUTO) 0.47 x10^3/uL (0.2-0.8); MONOCYTES % (AUTO) 5 % (2-9); NEUTROPHILS # (AUTO) 7.06 x10^3/uL (1.8-6.8); NEUTROPHILS % (AUTO) 75 % (42-75); PLATELET COUNT 245 x10^3/uL (130-400); RED BLOOD COUNT 5.22 x10^6/uL (3.82-5.3); RED CELL DISTRIBUTION WIDTH 15.9 % (9.6-15.2)
--- NOTE | 2019-11-07 18:20 | NUR ---
NO ANSWER IN LOBBY, POSSIBLY IN US
[2019-11-07 19:01] VITALS: BP 126/54
--- NOTE | 2019-11-07 19:01 | NUR ---
PT HERE WITH C/O BILATERAL LEG PAIN. PT STATES STARTED APPROX. 2 WEEKS AGO. PT DENIES TRAUMA. PT AAO X 4, NAD, ROOM AIR, CALL LIGHT WITHIN REACH. PT DRESSED IN GOWN AND ATTACHED TO MONITOR. SIDERAIL X [address]
--- NOTE | 2019-11-07 19:14 | NUR ---
XRAY AT BEDSIDE, TECH AT BEDSIDE FOR EKG.
--- NOTE | 2019-11-07 19:15 | NUR ---
AT BEDSIDE FOR EXAM.
[2019-11-07 19:39] LABS: TROPONIN I < 0.015 ng/mL (0.000-0.045)
[2019-11-07] MEDS ORDERED: HYDROcodone/APAP 5/325 TABLET ONE (19:49)
--- NOTE | 2019-11-07 19:51 | NUR ---
PT MEDICATED PER ORDERS.
[2019-11-07] MEDS ORDERED: HYDROcodone/APAP 5/325 TABLET PO ONE (20:00)
--- NOTE | 2019-11-07 20:08 | NUR ---
Patient/Caregiver given discharge instructions and they have confirmed that they understand the instructions. Patient ambulatory with steady gait.
== END 2019-11-07 20:12 | disposition home or self-care (01) ==
LOC: ED 20:00
DX: M79.662 Pain in left lower leg (principal); M79.661 Pain in right lower leg; R60.0 Localized edema; I10 Essential (primary) hypertension; J45.909 Unspecified asthma, uncomplicated; F17.200 Nicotine dependence, unspecified, uncomplicated; Z90.710 Acquired absence of both cervix and uterus
CPT/HCPCS: 36415; 71045; 80053; 83880; 84484; 85025; 93005; 93970; 99284

== ENCOUNTER 2019-11-18 17:28 | Emergency (ER) | payer MEDICARE, MEDICAID ==
[~2019-11-18] VITALS: Ht 152.4 cm; Wt 117.0 kg
[2019-11-18 17:40] VITALS: BP 148/65
--- NOTE | 2019-11-18 18:23 | NUR ---
RESIDENT AT BEDSIDE EXAMINING PT
--- NOTE | 2019-11-18 19:35 | NUR ---
AMBULATED TO DISCHARGE WINDOW, STEADY GAIT
== END 2019-11-18 19:37 | disposition home or self-care (01) ==
LOC: ED 19:31
DX: M25.562 Pain in left knee (principal); I10 Essential (primary) hypertension; J45.909 Unspecified asthma, uncomplicated; F17.200 Nicotine dependence, unspecified, uncomplicated; Z90.710 Acquired absence of both cervix and uterus; Z86.73 Personal history of transient ischemic attack (TIA), and cerebral infarction without residual deficits
CPT/HCPCS: 99283

== ENCOUNTER 2019-12-12 18:26 | Emergency (ER) | payer MEDICARE, MEDICAID ==
[~2019-12-12] VITALS: Ht 152.4 cm; Wt 115.9 kg
[2019-12-12 18:45] VITALS: BP 163/78
[2019-12-12] MEDS ORDERED: LURA20TA PO (19:45)
[2019-12-12] MEDS ORDERED: KETOROLAC 30 MG/1 ML IM ONE (20:00)
[2019-12-12] MEDS ORDERED: METHOCARBAMOL 750 MG TABLET PO ONE (20:00)
[2019-12-12] MEDS ORDERED: KETOROLAC 30 MG/1 ML ONE (20:06)
[2019-12-12] MEDS ORDERED: METHOCARBAMOL 750 MG TABLET ONE (20:06)
== END 2019-12-12 20:31 | disposition home or self-care (01) ==
LOC: ED 20:05
DX: S39.012A Strain of muscle, fascia and tendon of lower back, initial encounter (principal); M51.36 Other intervertebral disc degeneration, lumbar region; Z86.73 Personal history of transient ischemic attack (TIA), and cerebral infarction without residual deficits; J45.909 Unspecified asthma, uncomplicated; Z90.710 Acquired absence of both cervix and uterus; V49.59XA Passenger injured in collision with other motor vehicles in traffic accident, initial encounter; Y93.89 Activity, other specified; Y92.410 Unspecified street and highway as the place of occurrence of the external cause; Y99.8 Other external cause status
CPT/HCPCS: 72110; 96372; 99283; J1885

== ENCOUNTER 2020-01-10 21:42 | Emergency (ER) | payer MEDICARE, MEDICAID ==
[~2020-01-10] VITALS: Ht 152.4 cm; Wt 68.0 kg
[~2020-01-10 21:42] MED LIST changes: +LURA20TA PO
[2020-01-10] MEDS ORDERED: SERT25TA PO (21:54)
--- NOTE | 2020-01-10 21:54 | NUR ---
BIBA FOR NEW ONSET STUDDER R/T STRESS. PLACED VITALS SIGNS MONITORS, SAFETY PRECAUTIONS IN PLACE. CALL LIGHT PLACED WITHIN REACH.
[2020-01-10] MEDS ORDERED: LORazepam 1MG TABLET ONE (21:59)
[2020-01-10] MEDS ORDERED: KETOROLAC 30 MG/1 ML ONE (21:59)
[2020-01-10] MEDS ORDERED: ACETAMINOPHEN 500 MG TABLET ONE (21:59)
[2020-01-10] MEDS ORDERED: ACETAMINOPHEN 500 MG TABLET PO ONE (22:00)
[2020-01-10] MEDS ORDERED: KETOROLAC 30 MG/1 ML IM ONE (22:00)
[2020-01-10] MEDS ORDERED: LORazepam 1MG TABLET PO ONE (22:00)
[2020-01-10 23:02] VITALS: BP 105/41
--- NOTE | 2020-01-10 23:04 | NUR ---
PT REPORTS SHE FEELS BETTER, AND HEADACHE IS GONE, SHE REPORTS STUDDER HAS RESOLVED. VSS.
--- NOTE | 2020-01-10 23:23 | NUR ---
PT REQUESTED IV TAKEN OUT, STATES IT IS BOTHERING HER. IV REMOVED PER PT REQUEST, NO SIGNS OF INFILTRATION NOTED AT THIS TIME, TIP INTACT.
== END 2020-01-11 00:06 | disposition home or self-care (01) ==
LOC: ED 22:22
DX: R51 Headache (principal); F41.1 Generalized anxiety disorder; I10 Essential (primary) hypertension; F17.200 Nicotine dependence, unspecified, uncomplicated; Z90.710 Acquired absence of both cervix and uterus
CPT/HCPCS: 96372; 99283; J1885

== ENCOUNTER 2020-01-18 10:09 | Emergency (ER) | payer MEDICARE, MEDICAID ==
[~2020-01-18] VITALS: Ht 152.4 cm; Wt 116.0 kg
[~2020-01-18 10:09] MED LIST changes: +SERT25TA PO
--- NOTE | 2020-01-18 10:24 | NUR ---
PT PRESENTED TO ED D/T COUGH AND SOB X2 DAYS. PT DENIES RECENT TRAVEL. UNKNOWN IF AROUND ANYONE WITH POSTIVE COVID. PT STATES SHE WORKS FOR [employer].
[2020-01-18] MEDS ORDERED: AMLO-150 PO (10:26)
[2020-01-18] MEDS ORDERED: SODIUM CHLORIDE FLUSH 10ML SYR IVF ONE (10:30)
--- NOTE | 2020-01-18 10:41 | NUR ---
RN ATTEMPTED TO START A PIV. RN WAS UNSUCCESSFUL. RN ASKED KIMI RN TO TRY AND OBTAIN ACCESS.
[2020-01-18 11:40] LABS: ALANINE AMINOTRANSFERASE 32 U/L (12-78); ALBUMIN 3.7 g/dL (3.4-5.0); ANION GAP 3 mmol/L (5-15); CALCIUM 8.8 mg/dL (8.5-10.1); CHLORIDE 111 mmol/L (98-107); CREATININE 1.08 mg/dL (0.55-1.02)
[2020-01-18 11:45] LABS: ALKALINE PHOSPHATASE 65 U/L (45-117); BILIRUBIN,TOTAL 0.5 mg/dL (0.2-1.0); TOTAL PROTEIN 7.3 g/dL (6.4-8.2); TROPONIN I < 0.015 ng/mL (0.000-0.045)
[2020-01-18 11:46] LABS: MEAN CORPUSCULAR HEMOGLOBIN 32.2 pg (27.0-34.8); MEAN CORPUSCULAR HGB CONC 33.7 g/dL (32.4-35.8); MEAN CORPUSCULAR VOLUME 95.5 fL (80-100); MEAN PLATELET VOLUME 8.9 fL (7.4-10.4); PLATELET COUNT 247 x10^3/uL (130-400); RED BLOOD COUNT 4.66 x10^6/uL (3.82-5.3); RED CELL DISTRIBUTION WIDTH 14.2 % (9.6-15.2)
--- NOTE | 2020-01-18 11:48 | NUR ---
PT RESTING COMFORTABLY ON GURNEY AWAITING CTA. NO C/O PAIN OR DISCOMFORT AT THIS TIME. CALL LIGHT AND PERSONAL BELONINGS WITHIN REACH. RN TO CONTINUE TO MONITOR.
[2020-01-18 11:49] VITALS: BP 100/51
--- NOTE | 2020-01-18 12:14 | NUR ---
OKAY BY AISHWARYA TO GIVE PT CRACKERS.
[2020-01-18] MEDS ORDERED: OMNIPAQUE 350 MG/ML, 100ML BOTTLE ONE (12:20)
[2020-01-18 12:29] LABS: BASOPHILS # (AUTO) 0.02 x10^3/uL (0-0.1); BASOPHILS % (AUTO) 0 % (0-1); EOSINOPHILS # (AUTO) 0.14 x10^3/uL (0-0.4); EOSINOPHILS % (AUTO) 2 % (1-7); LYMPHOCYTES # (AUTO) 1.47 x10^3/uL (1-3.4); LYMPHOCYTES % (AUTO) 18 % (22-44); MD SCAN; MONOCYTES # (AUTO) 0.51 x10^3/uL (0.2-0.8); MONOCYTES % (AUTO) 6 % (2-9); NEUTROPHILS # (AUTO) 5.94 x10^3/uL (1.8-6.8); NEUTROPHILS % (AUTO) 74 % (42-75)
== END 2020-01-18 12:39 | disposition home or self-care (01) ==
LOC: ED 10:30
DX: R06.00 Dyspnea, unspecified (principal); I11.9 Hypertensive heart disease without heart failure; J45.909 Unspecified asthma, uncomplicated; F17.200 Nicotine dependence, unspecified, uncomplicated; Z90.710 Acquired absence of both cervix and uterus
CPT/HCPCS: 36415; 71275; 80053; 83880; 84484; 85025; 93005; 99285; Q9967

== ENCOUNTER 2020-04-10 18:38 | Emergency (ER) | payer MEDICARE, MEDICAID ==
[~2020-04-10] VITALS: Ht 152.4 cm; Wt 111.9 kg
[2020-04-10 18:39] VITALS: BP 154/100
[2020-04-10] MEDS ORDERED: hydrOXyzine 50MG TABLET ONE (19:12)
[2020-04-10] MEDS ORDERED: KETOROLAC 30 MG/1 ML ONE (19:13)
[2020-04-10] MEDS ORDERED: KETOROLAC 30 MG/1 ML IM ONE (19:30)
[2020-04-10] MEDS ORDERED: hydrOXyzine 50MG TABLET PO ONE (19:30)
--- NOTE | 2020-04-10 19:44 | NUR ---
PT STATES SHE FEELS BETTER AND WANTS TO GO HOME. THIS RN RE EDUCATED PT ON THAT AFTER THE MEDS WE GAVE HER SHE NEEDS TO CALL SOMEONE FOR A RIDE HOME. THE PT UNDERSTOOD THIS TEACHING AND STATED "I WILL CALL MY SON AND HE WILL COME GET ME"
== END 2020-04-10 19:46 | disposition home or self-care (01) ==
LOC: ED 19:30
DX: R51 Headache (principal); H53.149 Visual discomfort, unspecified; F41.9 Anxiety disorder, unspecified; F17.200 Nicotine dependence, unspecified, uncomplicated; I10 Essential (primary) hypertension; J45.909 Unspecified asthma, uncomplicated; Z90.710 Acquired absence of both cervix and uterus; Z86.73 Personal history of transient ischemic attack (TIA), and cerebral infarction without residual deficits
CPT/HCPCS: 96372; 99283; J1885

== ENCOUNTER 2020-06-01 08:49 | Emergency (ER) | payer MEDICARE, MEDICAID ==
[~2020-06-01] VITALS: Ht 160 cm; Wt 105.8 kg
[2020-06-01 08:58] VITALS: BP 132/82
--- NOTE | 2020-06-01 09:29 | NUR ---
SEEN BY ARELY JAVIER REQUESTING NO TX SHE HAS AN APPOINTMENT AT HER MD AND WANTS TO LEAVE AND KEEP THAT APPOINTMENT HAD A -12 LEAD PER PA
== END 2020-06-01 10:07 | disposition home or self-care (01) ==
LOC: ED 10:01
DX: R53.1 Weakness (principal); F41.9 Anxiety disorder, unspecified; I51.7 Cardiomegaly; R63.0 Anorexia; I10 Essential (primary) hypertension; G43.909 Migraine, unspecified, not intractable, without status migrainosus; Z86.73 Personal history of transient ischemic attack (TIA), and cerebral infarction without residual deficits
CPT/HCPCS: 93005; 99283

== ENCOUNTER 2020-07-02 15:21 | Emergency (ER) | payer MEDICARE, MEDICAID ==
[~2020-07-02] VITALS: Ht 152.4 cm; Wt 103.8 kg
[2020-07-02 15:24] VITALS: BP 147/81
--- NOTE | 2020-07-02 17:29 | NUR ---
PT CALLED FOR REPEAT VITAS. NO ANSWER WHEN CALLED @ [id number].
--- NOTE | 2020-07-02 18:55 | NUR ---
LATE ENTRY FOR 1809: NA X 2
--- NOTE | 2020-07-02 18:56 | NUR ---
NA X 3
== END 2020-07-02 18:58 | disposition left against medical advice (07) ==
LOC: ED 15:45
DX: K08.89 Other specified disorders of teeth and supporting structures (principal)
CPT/HCPCS: 99281

== ENCOUNTER 2020-08-07 14:20 | Emergency (ER) | payer MEDICARE, MEDICAID ==
[~2020-08-07] VITALS: Ht 152.4 cm; Wt 100.0 kg
[2020-08-07 16:30] LABS: BASOPHILS % (AUTO) 1 % (0-1); EOSINOPHILS % (AUTO) 3 % (1-7); LYMPHOCYTES % (AUTO) 17 % (22-44); MEAN CORPUSCULAR HEMOGLOBIN 32.6 pg (27.0-34.8); MEAN CORPUSCULAR HGB CONC 32.9 g/dL (32.4-35.8); MEAN PLATELET VOLUME 8.8 fL (7.4-10.4); MONOCYTES % (AUTO) 6 % (2-9); NEUTROPHILS % (AUTO) 74 % (42-75); PLATELET COUNT 215 x10^3/uL (130-400); RED BLOOD COUNT 4.89 x10^6/uL (3.82-5.3); RED CELL DISTRIBUTION WIDTH 15.8 % (9.6-15.2)
[2020-08-07 16:34] LABS: MD NO
[2020-08-07 16:52] LABS: ALBUMIN 3.7 g/dL (3.4-5.0); ANION GAP 7 mmol/L (5-15); CALCIUM 8.9 mg/dL (8.5-10.1); CHLORIDE 111 mmol/L (98-107); CREATININE 1.16 mg/dL (0.55-1.02)
[2020-08-07] MEDS ORDERED: SODIUM CHLORIDE FLUSH 10ML SYR IVF ONE (19:00)
[2020-08-07] MEDS ORDERED: OMNIPAQUE 350 MG/ML, 100ML BOTTLE ONE (20:18)
--- NOTE | 2020-08-07 20:48 | NUR ---
RECEIVED REPORT FROM CLIVE REID TO ASSUME CARE OF PT. AT THIS TIME. FAMILY ASSISTING PT. TO WALK TO BR. PT. AMBULATORY WITH LIMPING GAIT.
--- NOTE | 2020-08-07 21:34 | NUR ---
PT. OUT OF ROOM FOR MRI AT THIS TIME.
[2020-08-07] MEDS ORDERED: LORazepam 1MG TABLET PO ONE (22:00)
[2020-08-07] MEDS ORDERED: LORazepam 1MG TABLET ONE (22:08)
--- NOTE | 2020-08-07 22:14 | NUR ---
PT. BACK FROM MRI; MEDICATED PER DEC. PT. WAS ABLE TO AMBULATE TO BR WITHOUT ASSIST AND BACK TO ROOM. DR. SHANE IN TO DISCUSS MRI FINDINGS WITH PT. PLAN FOR D/C DISUCSSED.
[2020-08-07 22:17] VITALS: BP 140/96
== END 2020-08-07 22:43 | disposition home or self-care (01) ==
LOC: ED 18:32
DX: M62.81 Muscle weakness (generalized) (principal); R51.9 Headache, unspecified; R94.31 Abnormal electrocardiogram [ECG] [EKG]; I10 Essential (primary) hypertension; J45.909 Unspecified asthma, uncomplicated; Z90.710 Acquired absence of both cervix and uterus; Z86.73 Personal history of transient ischemic attack (TIA), and cerebral infarction without residual deficits
CPT/HCPCS: 36415; 70450; 70496; 70498; 70551; 80048; 82040; 84703; 85025; 93005; 99285; Q9967

== ENCOUNTER 2020-08-08 17:43 | Emergency (ER) | payer MEDICARE, MEDICAID ==
[~2020-08-08] VITALS: Ht 152.4 cm; Wt 105.0 kg
[~2020-08-08 17:43] MED LIST changes: +AMLO-211 PO; -AMLO10TA8 PO
[2020-08-08] MEDS ORDERED: SODIUM CHLORIDE FLUSH 10ML SYR IVF ONE ×2 (19:00→21:00)
--- NOTE | 2020-08-08 19:05 | NUR ---
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
--- NOTE | 2020-08-08 19:25 | NUR ---
PT AMBULTORY TO BATHROOM FOR UA, STEADY GAIT.
[2020-08-08] MEDS ORDERED: ONDANSETRON 2MG/ML, 2ML IVPush ONE (19:30)
[2020-08-08] MEDS ORDERED: MORPHINE SULFATE 4 MG/ML, 1ML IVPush ONE (19:30)
[2020-08-08] MEDS ORDERED: ONDANSETRON 2MG/ML, 2ML ONE (19:35)
[2020-08-08] MEDS ORDERED: MORPHINE SULFATE 4 MG/ML, 1ML ONE (19:36)
--- NOTE | 2020-08-08 19:49 | NUR ---
CLIVE AVENDANO REMAINS AT BEDSIDE IN ATTEMPT TO START IV VIA US.
[2020-08-08 19:51] LABS: MICROSCOPIC INDICATED
[2020-08-08 20:11] LABS: BASOPHILS % (AUTO) 0 % (0-1); EOSINOPHILS % (AUTO) 1 % (1-7); LYMPHOCYTES % (AUTO) 6 % (22-44); MEAN CORPUSCULAR HEMOGLOBIN 32.3 pg (27.0-34.8); MEAN CORPUSCULAR HGB CONC 33.1 g/dL (32.4-35.8); MEAN PLATELET VOLUME 8.9 fL (7.4-10.4); MONOCYTES % (AUTO) 4 % (2-9); NEUTROPHILS % (AUTO) 89 % (42-75); PLATELET COUNT 225 x10^3/uL (130-400); RED BLOOD COUNT 5.03 x10^6/uL (3.82-5.3); RED CELL DISTRIBUTION WIDTH 15.9 % (9.6-15.2)
[2020-08-08 20:20] LABS: ALANINE AMINOTRANSFERASE 39 U/L (12-78); ALBUMIN 3.8 g/dL (3.4-5.0); ANION GAP 5 mmol/L (5-15); CALCIUM 9.4 mg/dL (8.5-10.1); CHLORIDE 105 mmol/L (98-107); CREATININE 1.12 mg/dL (0.55-1.02)
[2020-08-08 20:22] LABS: ALKALINE PHOSPHATASE 88 U/L (45-117); BILIRUBIN,TOTAL 0.6 mg/dL (0.2-1.0); TOTAL PROTEIN 7.8 g/dL (6.4-8.2)
[2020-08-08 20:28] LABS: MD SCAN
[2020-08-08] MEDS ORDERED: HYDROmorphone 1 MG/ML, 1ML INJ ONE ×2 (20:33→21:20)
--- NOTE | 2020-08-08 20:41 | NUR ---
PT TO IMAGING AT THIS TIME.
[2020-08-08] MEDS ORDERED: OMNIPAQUE 350 MG/ML, 100ML BOTTLE ONE (20:51)
[2020-08-08] MEDS ORDERED: HYDROmorphone 2 MG/ML, 1ML IVPush PRN (21:00)
[2020-08-08] MEDS ORDERED: SODIUM CHLORIDE 0.9% 1,000 ML IV ONE (21:00)
[2020-08-08] MEDS ORDERED: FAMOTIDINE 20 MG TABLET PO ONE (21:30)
[2020-08-08] MEDS ORDERED: MAALOX/HYOSCYAMINE/LIDOCAINE 45 ML BTL PO ONE (21:30)
[2020-08-08] MEDS ORDERED: FAMOTIDINE 20 MG TABLET ONE (22:02)
[2020-08-08] MEDS ORDERED: MAALOX/HYOSCYAMINE/LIDOCAINE 45 ML BTL ONE (22:03)
[2020-08-08 22:27] VITALS: BP 150/75
--- NOTE | 2020-08-09 01:58 | NUR ---
LATE ENTRY: 1 OF 2 DOSES OF DILAUDID GIVEN. UNOPENED DILAUDID RETURNED TO [facility] WITH CLIVE AMBROSIO TO WITNESS.
== END 2020-08-08 23:03 | disposition home or self-care (01) ==
LOC: ED 19:25
DX: K29.00 Acute gastritis without bleeding (principal); R10.9 Unspecified abdominal pain; F17.210 Nicotine dependence, cigarettes, uncomplicated; J45.909 Unspecified asthma, uncomplicated; G43.909 Migraine, unspecified, not intractable, without status migrainosus; I10 Essential (primary) hypertension; Z86.73 Personal history of transient ischemic attack (TIA), and cerebral infarction without residual deficits
CPT/HCPCS: 36415; 74177; 80053; 81001; 83690; 85025; 96361; 96374; 96375; 99285; J1170; J2270; J2405; J7030; Q9967

== ENCOUNTER 2021-03-20 12:01 | Emergency (ER) | payer MEDICARE, MEDICAID ==
[~2021-03-20] VITALS: Ht 162.6 cm; Wt 100.5 kg
[~2021-03-20 12:01] MED LIST changes: -CLIN300C8 PO; +CLIN300C9 PO
--- NOTE | 2021-03-20 12:22 | NUR ---
PT HERE FOR C/O COUGH X2 DAYS. ALEJA MEIER AT BEDSIDE FOR EVAL.
[2021-03-20] MEDS ORDERED: BENZ-17 PO (12:27)
[2021-03-20] MEDS ORDERED: AMLO-211 PO (12:27)
[2021-03-20] MEDS ORDERED: TOPI100T8 PO (12:27)
[2021-03-20] MEDS ORDERED: TRAZ-175 PO (12:27)
[2021-03-20] MEDS ORDERED: ALBU18HF PO (12:27)
[2021-03-20] MEDS ORDERED: DIAZ5TAB4 PO (12:27)
[2021-03-20 13:42] VITALS: BP 134/85
== END 2021-03-20 13:46 | disposition home or self-care (01) ==
LOC: ED 13:20
DX: J06.9 Acute upper respiratory infection, unspecified (principal); Z20.822 Contact with and (suspected) exposure to COVID-19; J20.9 Acute bronchitis, unspecified; R09.81 Nasal congestion; I10 Essential (primary) hypertension; G43.909 Migraine, unspecified, not intractable, without status migrainosus; F17.210 Nicotine dependence, cigarettes, uncomplicated
CPT/HCPCS: 71045; 99284; U0003; U0005

== ENCOUNTER 2021-03-29 16:46 | Emergency (ER) | payer MEDICAID, MEDICARE ==
[~2021-03-29] VITALS: Ht 152.4 cm; Wt 101.7 kg
[~2021-03-29 16:46] MED LIST changes: +ALBU18HF PO; +BENZ-17 PO; +DIAZ5TAB4 PO; +TOPI100T8 PO; +TRAZ-175 PO
[2021-03-29 17:06] VITALS: BP 154/87
[2021-03-29 17:31] LABS: BASOPHILS % (AUTO) 0 % (0-1); EOSINOPHILS % (AUTO) 2 % (1-7); LYMPHOCYTES % (AUTO) 18 % (22-44); MEAN CORPUSCULAR HGB CONC 34.5 g/dL (32.4-35.8); MEAN PLATELET VOLUME 8.7 fL (7.4-10.4); MONOCYTES % (AUTO) 5 % (2-9); NEUTROPHILS % (AUTO) 75 % (42-75); PLATELET COUNT 277 x10^3/uL (130-400); RED BLOOD COUNT 4.59 x10^6/uL (3.82-5.3); RED CELL DISTRIBUTION WIDTH 15.4 % (9.6-15.2)
[2021-03-29 17:42] LABS: ALANINE AMINOTRANSFERASE 41 U/L (12-78); ALBUMIN 3.6 g/dL (3.4-5.0); ANION GAP 9 mmol/L (5-15); CALCIUM 9.2 mg/dL (8.5-10.1); CHLORIDE 106 mmol/L (98-107); CREATININE 0.94 mg/dL (0.55-1.02)
[2021-03-29 17:44] LABS: ALKALINE PHOSPHATASE 87 U/L (45-117); BILIRUBIN,TOTAL 0.6 mg/dL (0.2-1.0); TOTAL PROTEIN 7.5 g/dL (6.4-8.2)
--- NOTE | 2021-03-29 19:17 | NUR ---
PT LEFT AMA. PT EDUCATED ON THE IMPORTANCE OF STAYING AND BEING TREATED. PT SIGNED AMA PAPERWORK
== END 2021-03-29 19:20 | disposition left against medical advice (07) ==
LOC: ED 19:00
DX: R10.30 Lower abdominal pain, unspecified (principal)
CPT/HCPCS: 36415; 80053; 83690; 85025; 99283

== ENCOUNTER 2021-04-07 09:51 | Emergency (ER) | payer MEDICARE ==
[~2021-04-07] VITALS: Ht 152.4 cm; Wt 102.0 kg
--- NOTE | 2021-04-07 10:45 | NUR ---
PT AMBULATORY TO BR, UNABLE TO PROVIDE URINE. STATES "I JUST WENT RIGHT BEFORE COMING HERE".
[2021-04-07] MEDS ORDERED: SODIUM CHLORIDE FLUSH 10ML SYR IVF ONE (11:00)
[2021-04-07 11:07] LABS: BASOPHILS % (AUTO) 1 % (0-1); EOSINOPHILS % (AUTO) 2 % (1-7); LYMPHOCYTES % (AUTO) 17 % (22-44); MEAN CORPUSCULAR HEMOGLOBIN 34.3 pg (27.0-34.8); MEAN CORPUSCULAR HGB CONC 34.6 g/dL (32.4-35.8); MEAN PLATELET VOLUME 8.8 fL (7.4-10.4); MONOCYTES % (AUTO) 5 % (2-9); NEUTROPHILS % (AUTO) 76 % (42-75); PLATELET COUNT 245 x10^3/uL (130-400); RED BLOOD COUNT 4.64 x10^6/uL (3.82-5.3); RED CELL DISTRIBUTION WIDTH 15.2 % (9.6-15.2)
[2021-04-07 11:15] LABS: ALANINE AMINOTRANSFERASE 28 U/L (12-78); ALBUMIN 3.7 g/dL (3.4-5.0); ANION GAP 9 mmol/L (5-15); CALCIUM 9.1 mg/dL (8.5-10.1); CHLORIDE 109 mmol/L (98-107); CREATININE 1.09 mg/dL (0.55-1.02)
[2021-04-07 11:18] LABS: ALKALINE PHOSPHATASE 78 U/L (45-117); BILIRUBIN,TOTAL 0.8 mg/dL (0.2-1.0); TOTAL PROTEIN 7.4 g/dL (6.4-8.2)
--- NOTE | 2021-04-07 11:27 | NUR ---
ED MEDIC ATTEMPTING IV WITH US, PREVIOUS ATTEMPT UNSUCCESSFUL
[2021-04-07] MEDS ORDERED: OMNIPAQUE 350 MG/ML, 100ML BOTTLE ONE (11:30)
[2021-04-07] MEDS ORDERED: KETOROLAC 30 MG/1 ML IVPush ONE (12:30)
[2021-04-07] MEDS ORDERED: KETOROLAC 30 MG/1 ML ONE (12:53)
[2021-04-07 13:02] VITALS: BP 132/68
== END 2021-04-07 13:04 | disposition home or self-care (01) ==
LOC: ED 11:52
DX: N83.291 Other ovarian cyst, right side (principal); M51.36 Other intervertebral disc degeneration, lumbar region; I10 Essential (primary) hypertension; J45.909 Unspecified asthma, uncomplicated; G43.909 Migraine, unspecified, not intractable, without status migrainosus; Z86.73 Personal history of transient ischemic attack (TIA), and cerebral infarction without residual deficits; Z90.49 Acquired absence of other specified parts of digestive tract; Z87.891 Personal history of nicotine dependence
CPT/HCPCS: 36415; 74177; 80053; 85025; 96374; 99285; J1885; Q9967

== ENCOUNTER 2021-06-18 11:26 | Emergency (ER) | payer MEDICARE ==
[~2021-06-18] VITALS: Ht 152.4 cm; Wt 102.7 kg
[~2021-06-18 11:26] MED LIST changes: -LISI2.5T PO; +LISI2.5T12 PO
[2021-06-18 11:28] VITALS: BP 182/83
[2021-06-18] MEDS ORDERED: ONDANSETRON ODT 4 MG PO ONE (12:00)
== END 2021-06-18 17:11 | disposition left against medical advice (07) ==
LOC: ED 11:46
DX: R11.2 Nausea with vomiting, unspecified (principal); G83.9 Paralytic syndrome, unspecified
CPT/HCPCS: 99281